=== PATIENT | male | born 1950 | race Caucasian/White ===

== ENCOUNTER → 2016-09-07 | Outpatient (CLI) | payer OTHER ==
[~2016-09-07] VITALS: Ht 186.7 cm; Wt 107.9 kg
[~2016-09-07] MED LIST: ALBU8I INH; ASPI1TAB69 PO; ASPI81TA11 PO; ASPI81TA82 PO; BD P31MI2; CARV3.12 PO; CILO100T PO; DEXTROSE 5% IN WATE 1000ML INJ 1,000 ML IV SCH; FURO20 PO; GLUCOMETER XX; GLUCOMTESTSTRIPS XX; GLUCTAB PO; INSULIN HUMAN REGULAR 1,000 UNITS/10 ML VIAL SQ PRN; LACTATED RINGER'S 1000 ML IV SCH; LANTINJ SQ; LEVA750T PO; LEVEMIR SQ; LISI-515 PO; LISI20 PO; METOPROLOL TARTRATE 25 MG TAB PO PRN; NEXI40CA PO; OMPR20CCR PO; PENT400 PO; PENT400T PO; PENT400T19 PO; PRED10 PO; PRED20 PO; PROPOFOL 200 MG/20 ML AMP IV ONE; SODIUM CHLORID 0.9% 500 ML IV SCH; SYMB160A INH; XANA1TAB2 PO; XANA1TAB6 PO; Z.0.INSULINSYR XX; Z.0.LANCETS XX
[2016-09-07 10:53] VITALS: BP 167/87; PULSE 76; RESP 18; TEMP 97.9; O2SAT 96
--- NOTE | 2016-09-07 11:15 | EKG ---
Date Performed: 09/07/2016 Time Performed: 10:27:17 PTAGE: 66 years EKG: Sinus rhythm NONSPECIFIC ST & T-WAVE ABNORMALITY BORDERLINE ECG PREVIOUS TRACING : 11/15/2015 20.36 DOCTOR: Evan Ruelas Interpretating Date/Time 09/07/2016 11:14:59
[2016-09-07 12:15] VITALS: TEMP 97.6
[2016-09-07 12:40] VITALS: BP 114/68; PULSE 74; RESP 16; O2SAT 98
== END ==
LOC: HEND 09:54
PROVIDERS: ATTEND Internal Medicine Gastroenterology
DX: Z86.010 Personal history of colon polyps (principal); D12.3 Benign neoplasm of transverse colon; K57.30 Diverticulosis of large intestine without perforation or abscess without bleeding; K64.8 Other hemorrhoids; K59.00 Constipation, unspecified; K21.0 Gastro-esophageal reflux disease with esophagitis; K44.9 Diaphragmatic hernia without obstruction or gangrene; K29.50 Unspecified chronic gastritis without bleeding; K31.9 Disease of stomach and duodenum, unspecified; R94.31 Abnormal electrocardiogram [ECG] [EKG]; E11.8 Type 2 diabetes mellitus with unspecified complications; Z79.84 Long term (current) use of oral hypoglycemic drugs
CPT/HCPCS: 82948; 88305; 93005

== ENCOUNTER → 2017-01-24 | Outpatient (CLI) | payer OTHER ==
[~2017-01-24] MED LIST changes: -ALBU8I INH; -ASPI1TAB69 PO; -ASPI81TA82 PO; -CILO100T PO; -DEXTROSE 5% IN WATE 1000ML INJ 1,000 ML IV SCH; -FURO20 PO; -GLUCOMETER XX; -GLUCOMTESTSTRIPS XX; -GLUCTAB PO; -INSULIN HUMAN REGULAR 1,000 UNITS/10 ML VIAL SQ PRN; -LACTATED RINGER'S 1000 ML IV SCH; -LEVA750T PO; -LEVEMIR SQ; -LISI20 PO; -METOPROLOL TARTRATE 25 MG TAB PO PRN; -OMPR20CCR PO; -PENT400 PO; -PENT400T19 PO; -PRED10 PO; -PRED20 PO; -PROPOFOL 200 MG/20 ML AMP IV ONE; -SODIUM CHLORID 0.9% 500 ML IV SCH; -SYMB160A INH; -XANA1TAB6 PO; -Z.0.INSULINSYR XX; -Z.0.LANCETS XX
--- NOTE | 2017-01-24 10:49 | RADRPT ---
EXAM DATE/TIME: 01/24/2017 00:00 [facility] COMPARISON: No previous studies available for comparison. INDICATIONS : Peripheral Artery Disease TECHNIQUE: Five-station segmental examination of the lower extremities was performed. Pulsed-cuff waveform tracings and pressures were recorded. Ankle-brachial indices and toe-brachial indices were calculated. PRESSURES (mmHg): Brachial (arm): Right 154 Left CNO Lower Thigh: Right 77 Left 79 Calf: Right 78 Left 83 Ankle: Right 78 Left 92 Toe: Right 71 Left 56 ANGELLA: Right 0.51 Left 0.60 TBI: Right 0.46 Left 0.36 PULSED CUFF WAVEFORMS: There is blunting of the waveforms at the level of the ankles bilaterally. CONCLUSION: 1. Findings a moderate disease bilaterally with decreased toe brachial indices suggestive of small ve ssel disease. CT angiography of the abdominal aorta and lower extremities is recommended for further evaluation if clinically indicated. Mateo Montelongo MD on January 24, 2017 at 10:46 Board Certified Radiologist. This report was verified electronically.
== END ==
LOC: HCAV 07:36
PROVIDERS: ATTEND Family Medicine
DX: I73.9 Peripheral vascular disease, unspecified (principal)
CPT/HCPCS: 93923

== ENCOUNTER → 2017-02-26 | Outpatient (CLI) | payer OTHER ==
[~2017-02-26] MED LIST changes: +ACCUTES19; +IOHEXOL 350 MG/ML 10 ML VIAL (for RAD DIAG) IV ONE; +METF500T PO; -PENT400T PO
--- NOTE | 2017-02-26 20:07 | RADRPT ---
EXAM DATE/TIME: 02/26/2017 13:46 [facility] COMPARISON: No previous studies available for comparison. INDICATIONS : Bilateral leg have pain while walking. IV CONTRAST: 85 cc Omnipaque 350 (iohexol) IV RADIATION DOSE: 11.29 CTDIvol (mGy) MEDICAL HISTORY : Cardiovascular disease. Chronic obstructive pulmonary disease. Congestive heart failure.Diabetes SURGICAL HISTORY : Appendectomy. ENCOUNTER: Initial ACUITY: 1 day PAIN SCALE: 3/10 LOCATION: [place] TECHNIQUE: Volumetric scanning was performed using a multi-row detector CT scanner. The data was post processed with a variety of visualization algorithms including full volume maximum intensity projection, multi -planar sliding thin slab reformation, curved planar reformation, and surface rendering techniques. Using automated exposure control and adjustment of the mA and/or kV according to patient size, radiat ion dose was kept as low as reasonably achievable to obtain optimal diagnostic quality images. DICO M format image data is available electronically for review and comparison. FINDINGS: The abdominal aorta is notable for moderate atheromatous irregularity and patchy dense intimal calcif ication. No significant aortic stenosis present. No aneurysm. Looking at the aortic visceral vessels, the celiac is satisfactory in appearance. There is high grade eccentric stenosis involving the proxi mal SMA. Single renal arteries are satisfactory in appearance. The CATHIE is stenotic at its origin. In the pelvis, there is high-grade stenosis involving the left iliac system at several sites and mild -moderate multifocal stenosis involving the right iliac system. The hypogastrics are patent. There is moderate posterior soft plaque involving the left common femoral artery. Right common femoral is rel atively more healthy. The profundas are patent bilaterally. There is severe SFA disease bilaterally, more severe and diffuse on the right than the left. The popl iteal arteries are relatively healthy in appearance however small in caliber on both sides. Adequate calf runoff is present with 2 intact vessels present on both sides. The posterior tibial arteries are discontinuous bilaterally. Elsewhere on the exam, note is made of gallstones. Speckled pancreatic calcifications suggest prior b outs of pancreatitis. CONCLUSION: Multifocal bilateral iliac inflow stenoses, left worse than right. Severe diffuse SFA disease bilaterally, right worse than left. Popliteal arteries are small in caliber though focally healthy. Adequate calf runoff Fernando Felix MD on February 26, 2017 at 19:55 Board Certified Radiologist. This report was verified electronically.
== END ==
LOC: HRAD 12:41
PROVIDERS: ATTEND Family Medicine
DX: I73.9 Peripheral vascular disease, unspecified (principal)
CPT/HCPCS: 75635; Q9967

== ENCOUNTER 2017-04-25 06:45 | Day surgery (SDC) | payer OTHER ==
[~2017-04-25] VITALS: Ht 186.7 cm; Wt 115.4 kg
[~2017-04-25 06:45] MED LIST changes: -IOHEXOL 350 MG/ML 10 ML VIAL (for RAD DIAG) IV ONE
[2017-04-25] MEDS ORDERED: IOHEXOL 350 MG/ML 100 ML BTL (for Cath Lab) OTHER ONE (06:46)
[2017-04-25 07:32] VITALS: BP 142/83; PULSE 83; RESP 16; TEMP 97.9; O2SAT 97
[2017-04-25] MEDS ORDERED: LANTINJ SQ (07:40)
[2017-04-25 08:10] LABS: AUTOMATED NEUTROPHIL # 4.3 TH/MM3 (1.8-7.7); BASOPHIL % 0.6 % (0.0-2.0); EOSINOPHIL # 0.3 TH/MM3 (0-0.4); EOSINOPHIL % 3.6 % (0.0-4.0); HEMATOCRIT 45.6 % (39.0-51.0); HEMO FLAGS DIFF FINAL; LYMPH % 37.1 % (9.0-44.0); LYMPHOCYTE # 3.2 TH/MM3 (1.0-4.8); MEAN CORPUSCULAR HEMOGLOBIN 30.1 PG (27.0-34.0); MEAN CORPUSCULAR HGB CONC 33.1 % (32.0-36.0); MONO % 7.9 % (0.0-8.0); NEUT % 50.8 % (16.0-70.0); PLATELET COUNT 209 TH/MM3 (150-450); RED BLOOD COUNT 5.02 MIL/MM3 (4.50-5.90); RED CELL DISTRIBUTION WIDTH 14.2 % (11.6-17.2); WHITE BLOOD COUNT 8.5 TH/MM3 (4.0-11.0)
[2017-04-25 08:15] LABS: APTT (PATIENT) 25.9 SEC (24.3-30.1); PROTHROMBIN TIME - PATIENT 10.5 SEC (9.8-11.6)
[2017-04-25] MEDS ORDERED: NS 1000P @30 MLS/HR (KVO) IV SCH (08:15)
[2017-04-25 08:33] LABS: BICARBONATE 23.3 MEQ/L (21.0-32.0)
[2017-04-25 08:34] LABS: POTASSIUM 4.3 MEQ/L (3.5-5.1)
[2017-04-25] MEDS ORDERED: NITROGLYCERIN INJ 5 ML ONE (08:38)
[2017-04-25] MEDS ORDERED: VERAPAMIL HCL 5 MG/2 ML VIAL ONE (08:38)
[2017-04-25] MEDS ORDERED: MIDAZOLAM HCL 5 MG/5 ML VIAL ONE (08:38)
[2017-04-25] MEDS ORDERED: HEPARIN SODIUM - IV 10,000 UNITS/10 ML VIAL ONE (08:38)
[2017-04-25] MEDS ORDERED: HEPARIN-NS/PF INJ 500 ML ONE (09:17)
[2017-04-25] MEDS ORDERED: CLOPIDOGREL 300 MG TAB ONE (09:35)
[2017-04-25] MEDS ORDERED: SODIUM CHLOR 0.9% 1000 ML INJ 1,000 ML IV SCH (09:43)
[2017-04-25] MEDS ORDERED: MORPHINE SULFATE 4 MG/ML INJ IV PUSH PRN (09:45)
[2017-04-25] MEDS ORDERED: MISC INFORMATION XX ONE (09:45)
[2017-04-25] MEDS ORDERED: SODIUM CHLORIDE 0.9% FLUSH 10 ML FLUSH IV FLUSH PRN (09:45)
--- NOTE | 2017-04-25 11:12 | MA ---
cc: MELITA GENAO M.D. DATE: 04/25/2017 INDICATION Unstable angina and significant positive stress test for ischemia. PROCEDURE Left heart catheterization, angiogram, left ventriculogram, angioplasty and stent placement of the LAD, angioplasty and stent placement of the right coronary artery. PROCEDURE NOTE After obtaining informed consent the patient in a fasting state was brought to the label sewer. The right radial area was sterilized and draped with sterile drapes. 1% Xylocaine was used to locally anesthetize the area. A 6 Swedish sheath was used to access the right radial artery. A [place] catheter was used to intubate the left main, JR4 to intubate the right coronary artery and perform left ventriculogram and the pressure measurements. CORONARY ANGIOGRAM The left main coronary artery is a medium size vessel which bifurcates into the LAD and left circumflex artery. The left main has no significant disease. The left anterior descending coronary artery has about 85% stenosis proximally and mild diffuse disease distally. The left circumflex coronary artery gives rise to an obtuse marginal artery with mild diffuse disease. A second obtuse marginal artery is very small and has severe diffuse disease. The right coronary artery is a medium size vessel which is dominant. The midsegment has two different lesions. The first one is about 75%. The distal one is about 90%. Very distally the posterior descending coronary artery has diffuse disease. LEFT VENTRICULOGRAM The ejection fraction is estimated to be 55%. There is no pressure gradient across the aortic valve. The left ventricular end-diastolic pressure is 14. The aortic pressure is 140/70. ANGIOPLASTY AND STENT PLACEMENT OF THE LAD Heparin was given. The left main was successfully intubated using a [place] catheter and a 6 Swedish guide used to cross the lesion and positioned distally. Balloon angioplasty followed by a 3.0 x 18 [place] stent up to 12 atmospheres. Angiographic evaluation showed excellent deployment of the stent, excellent flow distally. ANGIOPLASTY AND STENT PLACEMENT OF THE RIGHT CORONARY ARTERY The right coronary artery was successfully intubated using a JR4 6 Swedish guide catheter, was used to cross the lesion and positioned distally. A stent which was an [place] 2.5 x 26, inflated up to 12 atmospheres. Angiographic evaluation showed excellent deployment of the stent, excellent flow distally. The wires, balloons and catheters were taken out. The sheath was taken out. A TR band was applied. Plavix 600 mg was given in the label sewer. The patient was sent back to his room in stable condition. POSTOPERATIVE DIAGNOSIS 1. Successful angioplasty and stent placement of the LAD. 2. Successful angioplasty and sent placement of the right coronary artery. 3. Preserved systolic performance of the left ventricle. MD ESHA Taylor/WILLIAMS /9:39 AM /10:41 AM
--- NOTE | 2017-04-25 14:44 | CATHPROC ---
[employer] HIS Report Study Information Study Number Admission Scheduled Start Study Start [id number] Apr 25 2017 6:45AM 04/25/2017 Apr 25 2017 8:18AM [place] [facility] Cardiac Catheterization Admit Source Facility Department Other [facility] - Infrastructure Manager Physician and Clinical Staff Initial Cesia Mauricio Payroll Supervisor Rebecca Boyer,LIGIA Recorder Iram Sosa,RT(R) Scrub Sameer Munguia RCIS(BS) Procedures Performed Procedure Location (Site) Vessel Name Coronary Angiograms LCA Left Coronary Coronary Angiograms RCA Right Coronary Drug Eluting Inflatio LAD Prox Left Coronary Drug Eluting Inflatio RCA Mid Right Coronary L Heart Cath LV Gram-hand inj. LV LV Ventricle PTCA LAD Prox Left Coronary Wire insertion Radial (right) Radial Art. Equipment Time Stonemason Supervisor Description Size Mfg Part Number Used/Scraped WIRE, WHISPER W/HYDROCOAT [id number] 09:15 [employer] 190CM Used 190CM *[id number] TRANSDUCER, TRUWAVE [id number] 08:48 ODONNELL NORMAN * Used W/FELIBERTOCOCK *[id number] TIG 4.0 GUIDE CATHETER [id number] 09:16 [employer] FR 6 Used CONVEY *[id number] *[id number] *[id number] 08:48 [employer] PACK, CCL CUSTOM * Used *[id number] 08:48 [employer] SUPPORT, ARTERIAL ADULT [id number] *[id number] Used [id number] 08:48 [employer] PACER PEN, SKIN DUAL W/ RULER * Used *[id number] 09:20 [employer] BALLOON, 2.5 X 15MM EUPHORA 15MM Used *[id number] STENT, 3.0 18 RESOLUTE [id number] 09:24 [employer] 3.0 18 Used INTEGRITY RX *[id number] 09:33 [employer] STENT, 2.5 26MM ASTRID 2.5 26MM Used *[id number] 09:23 [employer] 30 ROBBIE INDEFLATOR Used *[id number] BAND, RADIAL COMPRESSION TR [id number] 09:42 [employer] MEDICAL 29CM Used LARGE 29 *[id number] 09:17 [employer] PACK, ANGIOPLASTY * [id number] Used [id number] 08:48 [employer] WIRE, EXCHANGE 260CM 3MMJ 260CM Used *[id number] 08:48 NAMIC MANIFOLD, 4 PORT * Used *[id number] 08:48 [employer] TUBING, HIGH PRESSURE 20" 20" Used *[id number] 08:48 [employer] OMNIPAQUE, 350 MG, 150ML 150ML [id number] Used [id number] 08:48 [facility] BLANKET,WARM AIR CCL * Used *[id number] CATHETER, FR5 OPTITORQUE [id number] 08:48 [employer] FR 5 Used RADIAL TIG 4.0 *[id number] SHEATH, FR6 TRANSRADIAL [id number] 08:48 [employer] FR 6 Used SLENDER 10CM *[id number] Equipment Model, Serial, Lot Number and Expiration Data Description Model Number Serial Number Lot Number Expiration Date STENT, 3.0 18 RESOLUTE [id number] 10-25-2018 INTEGRITY RX STENT, 2.5 26MM ASTRID [id number] 01-24-2019 History: Current Medications Medication Dosage/Unit Route Frequency Last Date/Time Taken Glucophage Insulin LISINOPRIL CARVEDILOL ASA History: Allergies Allergy Reaction No Known Allergies History: Risk Factors Family History of Hypertension Dyslipidemia Previous MO Previous Heart Failure Premature CAD Yes No No No Yes Prior Valve Prior PCI Prior CABG Surgery No No No Cerebrovascular Peripheral Artery Chronic Lung On Dialysis Diabetes Diabetes Therapy Disease Disease Disease No No Yes Yes Yes Insulin History: Symptoms/Diagnosis Selection Items Chest pain SOB History: Stress Tests Stress or Imaging Studies Performed Yes Standard Exercise Stress Test No Stress Echo No Stress Test SPECT Stress Test SPECT Result Stress Test SPECT Ischemia Risk/Extent Yes Positive Intermediate Stress Test CMR No Cardiac CTA Coronary Calcium Score No No History: Other Disease Selection Items COPD HIV History: Other Current Smoker Method Quit Packs a Day Years Used Pack Years No Cigarettes 15 Years Ago 2 26 52 Labs Hgb (g/dl) Hct (%) WBC (l/cumm) Platelets (thousands) 11.60-17.00 35.00-51.00 4.00-11.00 150.00-450.00 15.1 45.6 8.5 209 Glucose (mg/dl) BUN (mg/dl) Creatinine (mg/dl) BUN:Creatinine (1:x) 74.00-106.00 7.00-18.00 0.50-1.30 10.00-20.00 177 22 0.9 24.4 Na (meq/l) K (meq/l) Cl (meq/l) 136.00-145.00 3.50-5.10 98.00-107.00 138 4.3 106 INR (PTT:PT) 0.90-1.10 1 CPK-MB (ng/ML) 0.50-3.60 Not Drawn Medication Medication Total Dose (Bolus/Oral) Medication Total Dosage/Unit 1% XYLOCAINE 20 mL HEPARIN 5500 units PLAVIX 600 mg RADIAL COCKTAIL 5 mL (Bolus) VERSED 2 mg Medications (Bolus/Oral) Medication Time Given Dosage/Unit Administered By Reason VERSED 04/25/2017 8:59:00 AM 2 mg Rebecca Boyer 2 mg VERSED given in lab by Rebecca Boyer RN in Left Antecubital via Peripheral IV. Ordered by Cesia Villatoro. 1% XYLOCAINE 04/25/2017 9:00:18 AM 20 mL Cesia Copeland 20 mL 1% XYLOCAINE given in lab by Cesia Copeland in Right Radial via Subcutaneous. Ordered by Cesia Copeland. RADIAL COCKTAIL 04/25/2017 9:02:28 AM 5 mL (Bolus) Cesia Copeland 5 mL (Bolus) RADIAL COCKTAIL given in lab by Cesia Copeland in Right Radial via Radial. Using [Solutio n Name]. Ordered by Cesia Copeland. Reason: Ntg 200mcg Verapamil 2.5mg Heparin 1000U. HEPARIN 04/25/2017 9:15:00 AM 5000 units Rebecca Boyer 5000 units HEPARIN given in lab by Rebecca Boyer RN in Left Antecubital via Peripheral IV. Ordered by Cesia Copeland. HEPARIN 04/25/2017 9:34:00 AM 500 units Rebecca Boyer 500 units HEPARIN given in lab by Rebecca Boyer RN in Left Antecubital via Peripheral IV. Ordered by Cesia Copeland. PLAVIX 04/25/2017 9:40:00 AM 600 mg Rebecca Boyer 600 mg PLAVIX given in lab by Rebecca Boyer RN via Oral. Ordered by Cesia Copeland. Medication (Drip) Medication Time Given Dosage/Unit Concentration/Unit Diluent (ml) Solution IV Solutions 04/25/2017 8:27:46 AM 50 mL (IV) NaCl .9 IV Solutions given in lab by Rebecca Boyer, RN in Right Antecubital via Peripheral IV. Pump/Drip Fl ow using NaCl .9. Ordered by Cesia Copeland. Initial Case Assessment Cardiovascular HR Rhythm NIBP Chest Pain 83 sr 172/82 0 Skin color Skin Normal Warm Dry Neurological State Oriented to time-place- Alert Moves all extremities person Respiration - General Respiration Rate SpO2 (%) (B/min) 17 98 Chronological Log Time Study Chronological Log 8:27:27 Patient arrived via Bed. 8:27:28 Patient Name, D.O.B, / Armband Verified By R.N. 8:27:28 Consent signed by the physician and the patient and verified by the Infrastructure Manager staff. 8:27:30 Pre-op and post- op instructions given; patient acknowledges understanding of instructions . 8:27:31 Verbal Stimulation=2 Physical Stimulation=2 Airway=2 Respiration=2 TOTAL=8. (0=absent, 1=l imited, 2=present) 8:27:32 Allens test performed on the right radial and ulnar artery. 8:27:34 Patient has been NPO for More than 6Hrs. 8:27:35 Skin Breakdown- none per pt 8:27:36 Patient Warmer Placed on the Table. 8:27:45 A # 20 IV was noted in the Antecubital (left). Grade = 0 IV Solutions given in lab by Rebecca Boyer, RN in Right Antecubital via Peripheral IV. Pump/Dr ip Flow using NaCl .9. 8:27:46 Ordered by Cesia Copeland. 8:27:46 History and physical on the chart or being dictated. Assessment: Initial Case, HR=83 BPM, Rhythm=sr, UXFA=754/82 mmhg, Chest Pain=0, Color=Normal, Sk in = Warm, Dry 8:27:47 Neurological: State=Alert, Ox3, IVAN Respiration: Resp=17 B/min, SpO2=98 % Vitals capture started with the following parameters, Patient=Adult, Interval=5 min, Initial Pre smqoz=507 mmHg, 8:34:55 Deflation Rate=5 mmHg, Cuff placed on Right Arm 8:36:01 HR=81 bpm, TGGQ=136/82 mmhg, SpO2=96.0 %, Resp=21 B/min, Garcia=2 8:38:34 Reference ECG taken 8:40:38 HR=80 bpm, ORFH=268/87 mmhg, SpO2=96.0 %, Resp=18 B/min 8:45:35 HR=80 bpm, OFBZ=351/86 mmhg, SpO2=96.0 %, Resp=18 B/min 8:47:25 MD paged 8:50:32 MD responded 8:50:36 HR=76 bpm, BMEM=323/82 mmhg, SpO2=95.0 %, Resp=16 B/min 8:55:16 Pressure channel 2 zeroed. 8:55:33 HR=82 bpm, IJPC=182/85 mmhg, SpO2=95.0 %, Resp=19 B/min 8:57:14 MD arrived. 8:59:00 2 mg VERSED given in lab by Rebecca Boyer, LIGIA in Left Antecubital via Peripheral IV. Order ed by Cesia Copeland. Time Out. Correct patient, correct procedure, correct physician, power injector loaded, or not l oaded with contrast with 8:59:46 surgical team present. Time Out Concurred by MD and individual staff in procedure. 9:00:02 Case Start 9:00:18 20 mL 1% XYLOCAINE given in lab by Cesia Copeland in Right Radial via Subcutaneous. Ordered b y Cesia Copeland. 9:01:15 HR=82 bpm, YXQW=713/92 mmhg, SpO2=98.0 %, Resp=14 B/min 9:01:58 Access site was Right Radial Artery. A SHEATH, FR6 TRANSRADIAL SLENDER 10CM FR 6 was advanced into the Radial (right) using the Percu tanesanty 9:02:13 technique. 5 mL (Bolus) RADIAL COCKTAIL given in lab by Cesia Copeland in Right Radial via Radial. Using [So lution Name]. Ordered 9:02:28 by Cesia Copeland. Reason: Ntg 200mcg Verapamil 2.5mg Heparin 1000U. A CATHETER, FR5 OPTITORQUE RADIAL TIG 4.0 FR 5 was advanced over a wire. OMNIPAQUE, 350 MG, 150M L 150ML 9:03:11 was used for injections. 9:04:48 The LCA was injected and visualized at various angles. OMNIPAQUE, 350 MG, 150ML 150ML used. Recorded Pressure: Ao, HR=82, Condition=Condition 1 9:05:02 (Aorta) Ao 122/58/81 9:05:39 HR=80 bpm, XIGD=478/60 mmhg, SpO2=96.0 %, Resp=19 B/min 9:06:00 The RCA was injected and visualized at various angles. OMNIPAQUE, 350 MG, 150ML 150ML used. Recorded Pressure: LV, HR=83, Condition=Condition 1 9:08:11 (Left Ventricle) LV 118/8/10 Recorded Pressure: LV, Ao, HR=82, Condition=Condition 1 9:08:25 (Left Ventricle) LV 120/9/15, (Aorta) Ao 123/58/87 After removing the current catheter a JR 4.0 INFINITI CATHETER FR 6 was advanced over a WIRE, EX CHANGE 260CM 9:09:38 3MMJ 260CM. 9:10:32 HR=80 bpm, XEMS=683/65 mmhg, SpO2=96.0 %, Resp=17 B/min 9:11:30 The LV was manually injected with 10 cc's and visualized. OMNIPAQUE, 350 MG, 150ML 150ML use d. Recorded Pressure: LV, HR=79, Condition=Condition 1 9:11:59 (Left Ventricle) LV 137/6/12 Recorded Pressure: LV, Ao, HR=79, Condition=Condition 1 9:12:20 (Left Ventricle) LV 144/4/12, (Aorta) Ao 132/59/86 After removing the current catheter a TIG 4.0 GUIDE CATHETER CONVEY FR 6 was advanced over a WIR E, EXCHANGE 9:14:16 260CM 3MMJ 260CM. 9:15:00 5000 units HEPARIN given in lab by Rebecca Boyer, RN in Left Antecubital via Peripheral IV . Ordered by Cesia Copeland. 9:15:33 HR=78 bpm, AGOK=255/70 mmhg, SpO2=95.0 %, Resp=18 B/min 9:17:41 A WIRE, WHISPER W/HYDROCOAT 190CM 190CM was inserted via Radial (right). 9:19:00 Interventional wire has crossed the lesion 9:20:36 HR=79 bpm, GEDF=013/67 mmhg, SpO2=96.0 %, Resp=20 B/min A BALLOON, 2.5 X 15MM EUPHORA 15MM was inserted over WIRE, WHISPER W/HYDROCOAT 190CM 190CM via t he 9:21:16 Radial (right). A BALLOON, 2.5 X 15MM EUPHORA 15MM over a WIRE, WHISPER W/HYDROCOAT 190CM 190CM in the LAD Prox was 9:21:39 inflated using a 30 ROBBIE INDEFLATOR at 8 robbie for 15 sec. 9:22:00 Balloon Removed. A STENT, 3.0 18 RESOLUTE INTEGRITY RX 3.0 18 was advanced through a TIG 4.0 GUIDE CATHETER CONVE Y FR 6 9:24:15 over a WIRE, WHISPER W/HYDROCOAT 190CM 190CM. A STENT, 3.0 18 RESOLUTE INTEGRITY RX 3.0 18 was deployed using a 30 ROBBIE INDEFLATOR at 12 atmosp heres for 9:24:31 13 seconds in the LAD Prox. 9:25:18 Stent deployed. Delivery device removed 9:25:35 HR=78 bpm, VIUK=718/77 mmhg, SpO2=97.0 %, Resp=20 B/min 9:25:45 Wire removed After removing the current catheter a JR 4.0 GUIDE CATHETER FR 6 was advanced over a WIRE, EXCHA NGE 260CM 9:26:40 3MMJ 260CM. 9:27:52 Activated Clotting Time Drawn 9:30:12 A WIRE, WHISPER W/HYDROCOAT 190CM 190CM was inserted via Radial (right). 9:30:36 HR=78 bpm, DGLJ=571/79 mmhg, SpO2=97.0 %, Resp=18 B/min 9:31:41 Interventional wire has crossed the lesion 9:33:01 ACT (Normal Range 90-180) = 228 A STENT, 2.5 26MM ASTRID 2.5 26MM was advanced through a JR 4.0 GUIDE CATHETER FR 6 over a WIRE, W HISPER 9:33:46 W/HYDROCOAT 190CM 190CM. 9:34:00 500 units HEPARIN given in lab by Rebecca Boyer, RN in Left Antecubital via Peripheral IV. Ordered by Cesia Copeland. A STENT, 2.5 26MM ASTRID 2.5 26MM was deployed using a 30 ROBBIE INDEFLATOR at 12 atmospheres for 10 seconds in 9:34:02 the RCA Mid. 9:34:55 Stent deployed. Delivery device removed 9:35:14 Wire removed 9:35:22 Catheter was removed 9:35:37 HR=81 bpm, LIMH=901/77 mmhg, SpO2=97.0 %, Resp=15 B/min 9:35:48 Case End 9:40:00 600 mg PLAVIX given in lab by Rebecca Boyer RN via Oral. Ordered by Cesia Copeland. Radial Compression Device Used. 12 mLs of air placed in BAND, RADIAL COMPRESSION TR LARGE 29 29C M. Affected 9:41:22 hand ~O2 SATURATION~ % O2 saturation. 9:41:25 HR=80 bpm, KQOQ=423/87 mmhg, SpO2=98.0 %, Resp=8 B/min 9:41:51 No case complications noted. 9:42:23 Cine recording checked. 9:42:26 Holding Area notified of successful intervention. 9:42:36 Bedside Report will be given. 9:42:39 Implantable Device card placed in patient's chart. 9:42:46 Contrast Scanned 9:42:50 A Left Heart Cath was performed. 9:50:00 Patient moved to bed. End Study - Contrast Media Used In Study Contrast Total Opened (mL) Total Used (mL) Total Wasted (mL) Omnipaque 190 190 0 End Study - Maximum Contrast Load Max Contrast Load (mL) 641.4 End Study - Radiation Exposure Fluoro Time (minutes) 9.0 End Study - Patient Disposition Complications Transferred To No Telemetry Bed
[2017-04-25] MEDS ORDERED: SODIUM CHLORIDE 0.9% FLUSH 10 ML FLUSH IV FLUSH SCH (21:00)
[2017-04-25] MEDS ORDERED: ATORVASTATIN 10 MG TAB PO SCH (21:00)
[2017-04-26] MEDS ORDERED: CLOPIDOGREL 75 MG TAB PO SCH (09:00)
[2017-04-26] MEDS ORDERED: ASPIRIN 81 MG CHEW TAB PO SCH (09:00)
--- NOTE | 2017-04-26 14:49 | EKG ---
Date Performed: 04/25/2017 Time Performed: 07:37:56 PTAGE: 66 years EKG: Sinus rhythm . Extensive ST-T changes are nonspecific Borderline ECG PREVIOUS TRACING : 09/07/2016 10.27 Compared to prior tracing no significant change DOCTOR: Julio Arevalo Interpretating Date/Time 04/26/2017 14:48:04
== END 2017-04-25 18:30 | disposition home or self-care (01) ==
LOC: HCAT 06:45 → HDIC 06:46 → HCAT 18:30
PROVIDERS: ATTEND Internal Medicine Cardiovascular Disease
DX: I20.0 Unstable angina (principal); I25.9 Chronic ischemic heart disease, unspecified; E11.9 Type 2 diabetes mellitus without complications; Z79.4 Long term (current) use of insulin
CPT/HCPCS: 80048; 85002; 85025; 85610; 85730; 92928; 92929; 93005; 93458; C1725; C1769; C1874; C1887; C1893; J1644; J2250; Q9967

== ENCOUNTER 2017-05-08 05:52 | Day surgery (SDC) | payer OTHER ==
[~2017-05-08] VITALS: Ht 185.4 cm; Wt 113.7 kg
[~2017-05-08 05:52] MED LIST changes: -ACCUTES19; -BD P31MI2; -NEXI40CA PO; -XANA1TAB2 PO
[2017-05-08] MEDS ORDERED: IOHEXOL 350 MG/ML 50 ML BTL (for Cath Lab) OTHER ONE (05:53)
[2017-05-08] MEDS ORDERED: IOHEXOL 350 MG/ML 100 ML BTL (for Cath Lab) OTHER ONE (05:53)
[2017-05-08] MEDS ORDERED: SODIUM CHLOR 0.9% 1000 ML INJ 1,000 ML IV SCH (06:15)
[2017-05-08] MEDS ORDERED: NEXI20CA PO (06:42)
[2017-05-08] MEDS ORDERED: PLAV75TA29 PO (06:42)
[2017-05-08] MEDS ORDERED: LIPI10TA PO (06:42)
[2017-05-08] MEDS ORDERED: OMEGCAP PO (06:42)
[2017-05-08 06:43] VITALS: BP 118/71; PULSE 77; RESP 17; TEMP 98.4; O2SAT 96
[2017-05-08 06:52] LABS: AUTOMATED NEUTROPHIL # 3.7 TH/MM3 (1.8-7.7); BASOPHIL % 0.5 % (0.0-2.0); EOSINOPHIL # 0.3 TH/MM3 (0-0.4); EOSINOPHIL % 3.8 % (0.0-4.0); HEMATOCRIT 44.5 % (39.0-51.0); HEMO FLAGS DIFF FINAL; LYMPH % 38.1 % (9.0-44.0); LYMPHOCYTE # 2.9 TH/MM3 (1.0-4.8); MEAN CELL VOLUME 90.2 FL (80.0-100.0); MEAN CORPUSCULAR HGB CONC 33.3 % (32.0-36.0); NEUT % 48.6 % (16.0-70.0); PLATELET COUNT 207 TH/MM3 (150-450); RED BLOOD COUNT 4.94 MIL/MM3 (4.50-5.90); WHITE BLOOD COUNT 7.5 TH/MM3 (4.0-11.0)
[2017-05-08 06:56] LABS: INTERNATIONAL NORMALIZED RATIO 0.9 RATIO; PROTHROMBIN TIME - PATIENT 10.4 SEC (9.8-11.6)
[2017-05-08 07:14] LABS: BICARBONATE 26.4 MEQ/L (21.0-32.0); POTASSIUM 4.6 MEQ/L (3.5-5.1)
[2017-05-08] MEDS ORDERED: HEPARIN-NS/PF INJ 1,000 ML ONE (08:05)
[2017-05-08] MEDS ORDERED: MIDAZOLAM HCL 2 MG/2 ML VIAL ONE (08:05)
[2017-05-08] MEDS ORDERED: HEPARIN SODIUM - IV 10,000 UNITS/10 ML VIAL ONE (08:28)
[2017-05-08] MEDS ORDERED: NITROGLYCERIN INJ 0 ML ONE (08:28)
--- NOTE | 2017-05-08 08:56 | CATHPROC ---
[facility] HIS Report Study Information Study Number Admission Scheduled Start Study Start [id number] May 08 2017 5:52AM 05/08/2017 May 08 2017 7:38AM [place] Service Cath Endovascular Study Admit Source Facility Department Other [facility] - Planogrammer Physician and Clinical Staff Initial Cesia Mauricio Clinical Team Leadrosemary Ash RN, Lidia Patten,LIGIA Recorder Florentino Jj,RT(R) Scrub Lane ReinosoRT(R) Procedures Performed Procedure Location (Site) Vessel Name Abdominal Angiogram Abd Aorta (A3) Aorta Angiogram (manual) SFA (right) Femoral Art Angiogram (manual) Tib, Ant. (right) Popliteal Equipment Time Computer Science Professor Description Size Mfg Part Number Used/Scraped [id number] 08:44 CARDIVA MEDICAL VASCADE, FR5 CLOSURE SYSTEM FR 5 Used *[id number] *[id number] *[id number] 07:38 [employer] INDUSTRIES PACK, CCL CUSTOM * Used *[id number] 07:39 [employer] MEDICAL WIRE, EXCHANGE 260CM 3MMJ 260CM Used *[id number] 08:02 NAMIC TUBING, HIGH PRESSURE 48" 48" Used *[id number] 07:38 NAMIC TUBING, HIGH PRESSURE 48" 48" Used *[id number] 07:38 NYCOMED OMNIPAQUE, 300 MG, 150ML 150ML [id number] Used 07:38 NYCOMED OMNIPAQUE, 300 MG, 50ML 50ML [id number] Used [id number] 07:38 BUSTOS MEDICAL BLANKET,WARM AIR CCL * Used *[id number] 07:38 TERUMO MEDICAL SHEATH, FR5 TERUMO (10CM) FR 5 Used *[id number] WIRE, ANGLE GLIDE STIFF .035 [id number] 07:39 TERUMO MEDICAL/NOLAN 260CM Used 260CM *[id number] WIRE, ANGLED GLIDE .035 [id number] 08:35 TERUMO MEDICAL/NOLAN 260CM Used 260CM *[id number] Equipment Model, Serial, Lot Number and Expiration Data Description Model Number Serial Number Lot Number Expiration Date WIRE, EXCHANGE 260CM 3MMJ [id number] 01-20-2020 History: Current Medications Medication Dosage/Unit Route Frequency Last Date/Time Taken Glucophage Insulin LISINOPRIL CARVEDILOL ASA PLAVIX Beta Srinivasa Statins (any) History: Allergies Allergy Reaction No Known Allergies History: Risk Factors Family History of Hypertension Dyslipidemia Previous [place] Previous Heart Failure Premature CAD Yes Yes Yes No No Prior Valve Prior PCI Prior PCIDate Prior CABG Surgery No Yes 04/25/2017 No Cerebrovascular Peripheral Artery Chronic Lung On Dialysis Diabetes Diabetes Therapy Disease Disease Disease No No Yes Yes Yes Insulin History: Stress Tests Stress or Imaging Studies Performed No History: Other Disease Selection Items COPD HTN History: Other Current Smoker Method Quit Packs a Day Years Used Pack Years No Cigarettes 25 Years Ago 1 22 Labs Hgb (g/dl) Hct (%) WBC (l/cumm) Platelets (thousands) 11.60-17.00 35.00-51.00 4.00-11.00 150.00-450.00 14.8 44.5 7.5 207 Glucose (mg/dl) BUN (mg/dl) Creatinine (mg/dl) BUN:Creatinine (1:x) 74.00-106.00 7.00-18.00 0.50-1.30 10.00-20.00 161 29 1.0 29 Na (meq/l) K (meq/l) 136.00-145.00 3.50-5.10 140 4.6 INR (PTT:PT) 0.90-1.10 0.9 CPK-MB (ng/ML) 0.50-3.60 Not Drawn Medication Medication Total Dose (Bolus/Oral) Medication Total Dosage/Unit 1% XYLOCAINE 20 mL VERSED 2 mg Medications (Bolus/Oral) Medication Time Given Dosage/Unit Administered By Reason VERSED 05/08/2017 8:13:04 AM 2 mg Onofre Ash RN 2 mg VERSED given in lab by Onofre Ash RN in Left Antecubital via Peripheral IV. 1% XYLOCAINE 05/08/2017 8:16:53 AM 20 mL Cesia Copeland 20 mL 1% XYLOCAINE given in lab by Cesia Copeland in Right Groin via Subcutaneous. Medication (Drip) Medication Time Given Dosage/Unit Concentration/Unit Diluent (ml) Solutio n IV Solutions 05/08/2017 7:59:20 AM 50 mL (IV) NaCl .9 IV Solutions given in lab by Onofre Ash RN in Left Antecubital via Peripheral IV. Pump/Drip Flow us ing NaCl .9. Initial Case Assessment Cardiovascular HR Rhythm NIBP Chest Pain 75 SR 167/83 0 Edema Present Skin color Skin None Normal Warm Dry Circulatory - Right Pulses Dorsalis Pedis Posterior Tibial Femoral d d 1 Scale (0,1,2,3,4,d) Circulatory - Left Pulses Dorsalis Pedis Posterior Tibial Femoral d d 1 Scale (0,1,2,3,4,d) Neurological State Oriented to time-place- Alert Moves all extremities person Respiration - General Respiration Rate SpO2 (%) (B/min) 12 98 Final Case Assessment Cardiovascular HR Rhythm NIBP Chest Pain 76 Sinus 143/73 0 Edema Present Skin color Skin None Normal Warm Dry Circulatory - Right Pulses Dorsalis Pedis Posterior Tibial Femoral d d 1 Scale (0,1,2,3,4,d) Circulatory - Left Pulses Dorsalis Pedis Posterior Tibial Femoral d d 1 Scale (0,1,2,3,4,d) Neurological State Oriented to time-place- Alert Moves all extremities person Respiration - General Respiration Rate SpO2 (%) O2 (lpm) (B/min) 17 97 0 Chronological Log Time Study Chronological Log 7:49:36 Patient arrived via Bed. 7:49:37 Patient Name, D.O.B, / Armband Verified By R.N. 7:49:39 Consent signed by the physician and the patient and verified by the Planogrammer staff. 7:49:41 Pre-op and post- op instructions given; patient acknowledges understanding of instructions. 7:50:08 Verbal Stimulation=2 Physical Stimulation=2 Airway=2 Respiration=2 TOTAL=8. (0=absent, 1=li mited, 2=present) 7:50:18 Presedation assessment performed by Planogrammer RN. Vitals capture started with the following parameters, Patient=Adult, Interval=5 min, Initial Pr xoymfi=783 mmHg, 7:57:14 Deflation Rate=5 mmHg 7:58:17 Reference ECG taken 7:58:34 HR=80 bpm, WHVE=137/83 mmhg, SpO2=98.0 %, Resp=14 B/min, Pain=0, Mina=10, Garcia=2 7:58:54 Patient has been NPO for More than 6Hrs. 7:58:55 Skin Breakdown- none per pt 7:59:06 Patient Warmer Placed on the Table. 7:59:10 Janett Prominences Protected 7:59:11 A # 20 IV was noted in the Antecubital (left). Grade = 0 7:59:20 IV Solutions given in lab by Onofre Ash RN in Left Antecubital via Peripheral IV. Pump/Dr ip Flow using NaCl .9. 8:00:29 History and physical on the chart or being dictated. Assessment: Initial Case, HR=75 BPM, Rhythm=SR, KNXB=225/83 mmhg, Chest Pain=0, Edema=None, [place] r=Normal, Skin = Warm, Dry Right Pulses: Jose Ped=d, Post Tib=d, Femoral=1 8:00:29 Left Pulses: Jose Ped=d, Post Tib=d, Femoral=1 Neurological: State=Alert, Ox3, IVAN Respiration: Resp=12 B/min, SpO2=98 % 8:02:58 HR=75 bpm, HXOE=246/79 mmhg, SpO2=96.0 %, Resp=19 B/min, Pain=0, Mina=10, Garcia=2 8:06:40 Bilateral groins prepped with 2% chlorhexidine, and draped after a 3 minute waiting time. 8:07:55 HR=76 bpm, YJLL=213/80 mmhg, SpO2=96.0 %, Resp=15 B/min, Pain=0, Mina=10, Garcia=2 8:11:06 Pressure channel 1 zeroed. 8:11:35 MD arrived. 8:12:58 HR=82 bpm, QYNJ=712/87 mmhg, SpO2=97.0 %, Resp=17 B/min, Pain=0, Mina=10, Garcia=2 8:13:04 2 mg VERSED given in lab by Onofre Ash RN in Left Antecubital via Peripheral IV. Time Out. Correct patient, correct procedure, correct physician, power injector loaded, or not l oaded with contrast with 8:14:42 surgical team present. Time Out Concurred by MD and individual staff in procedure. 8:15:12 Case Start 8:16:53 20 mL 1% XYLOCAINE given in lab by Cesia Copeland in Right Groin via Subcutaneous. 8:17:01 Access site was Right Femoral Artery. 8:17:09 A SHEATH, FR5 TERUMO (10CM) FR 5 was advanced into the Fem Art (right) using the Percutaneou s technique. 8:17:51 HR=83 bpm, ESNC=275/78 mmhg, SpO2=98.0 %, Resp=12 B/min, Pain=0, Mina=10, Garcia=2 A PIGTAIL ANG. INFINITI CATHETER FR 5 was advanced over a wire. OMNIPAQUE, 300 MG, 150ML 150ML w as used 8:18:10 for injections. 8:20:48 Through a PIGTAIL ANG. INFINITI CATHETER FR 5, The Abdominal Aorta was injected with 15 cc's of contrast. 8:22:56 HR=78 bpm, SBON=477/68 mmhg, SpO2=95.0 %, Resp=18 B/min, Pain=0, Mina=10, Garcia=2 8:26:48 Through a catheter, The Femoral Run-off was injected with ~CC/SEC~ cc's per second. 8:27:55 HR=83 bpm, ICHW=221/73 mmhg, SpO2=98.0 %, Resp=18 B/min, Pain=0, Mina=10, Garcia=2 8:31:44 SFA (right) angiogram, manually injected. 8:32:03 Tib, Ant. (right) angiogram, manually injected. 8:32:33 Tib, Ant. (right) angiogram, manually injected. 8:32:56 HR=80 bpm, PKOT=893/80 mmhg, SpO2=96.0 %, Resp=21 B/min, Pain=0, Mina=10, Garcia=2 After removing the current catheter a CATHIE INFINITI CATHETER FR 5 was advanced over a WIRE, ANGLE D GLIDE .035 8:34:32 260CM 260CM. 8:37:59 HR=73 bpm, GMUL=834/71 mmhg, SpO2=96.0 %, Resp=16 B/min, Pain=0, Mina=10, Garcia=2 Recorded Pressure: Ao, HR=78, Condition=Condition 1 8:41:14 (Aorta) Ao 133/53/84 8:43:00 HR=81 bpm, FPAP=539/75 mmhg, SpO2=96.0 %, Resp=12 B/min, Pain=0, Mina=10, Garcia=2 8:44:37 VASCADE, FR5 CLOSURE SYSTEM FR 5 placement in the Fem Art (right) 8:44:43 Catheter was removed w/o difficulty 8:45:52 Case End 8:47:59 HR=76 bpm, UDPW=269/73 mmhg, SpO2=95.0 %, Resp=16 B/min, Pain=0, Mina=10, Garcia=2 8:50:35 Sterile dressing applied to site 8:50:36 No case complications noted. 8:50:37 Cine recording checked. Assessment: Final Case, HR=76 BPM, Rhythm=Sinus, RFGW=020/73 mmhg, Chest Pain=0, Edema=None, Color=Normal, Skin = Warm, Dry Right Pulses: Jose Ped=d, Post Tib=d, Femoral=1 8:51:24 Left Pulses: Jose Ped=d, Post Tib=d, Femoral=1 Neurological: State=Alert, Ox3, IVAN Respiration: Resp=17 B/min, SpO2=97 %, O2=0 lpm 8:54:31 DUWB=792/85 mmhg, Pain=0, Mina=10, Garcia=2 8:54:51 Vitals capture stopped. 8:58:[address] [facility] End Study - Contrast Media Used In Study Contrast Total Opened (mL) Total Used (mL) Total Wasted (mL) Omnipaque 300 110 190 End Study - Maximum Contrast Load Max Contrast Load (mL) 568.4 End Study - Radiation Exposure Fluoro Time (minutes) 8.1 End Study - Patient Disposition Complications Transferred To Interventional Outcome No Outpatient Bed No attempt made
[2017-05-08] MEDS ORDERED: SODIUM CHLOR 0.9% 1000 ML INJ 500 ML IV ONE (09:00)
--- NOTE | 2017-05-08 10:47 | MA ---
cc: MELITA GENAO M.D. DATE 05/08/2017 PREOPERATIVE DIAGNOSIS Severe claudication, ultrasound CTA scan consistent with severe peripheral vascular disease. PROCEDURE Angiogram with distal runoff. DESCRIPTION OF THE PROCEDURE After obtaining informed consent, the patient was brought to the Director Audience Marketing. The right groin area was sterilized and prepped with sterile drapes. 1% Xylocaine used to locally anesthetize the area. A 5-Syrian sheath advanced into the right femoral artery. A 5-Syrian pigtail performed aortogram and distal runoff and positioned toward the upper abdominal aorta area, then low abdominal aorta area. This was followed by hand injection through the sheath on the right side to get all the images all the way to the ankle and the left side we managed to get with the MURRAY catheter all the way up and around and positioned in the left external iliac area and injections to follow through all the way to the ankle. At the end of the procedure, the catheter taken out, sheath taken out and Vas cath closure of the puncture wound done successfully. He was sent back to his room in stable condition. No complications. RESULTS Abdominal aorta has mild disease. The renal does not seem to have any significant disease. The right common iliac and common femoral has mild diffuse disease. The profunda femoris has no significant disease. The right superficial femoral artery proximally has a lesion about 60-70%. The mid segment has two different lesions, one of them about 90, the other one 99%. Popliteal artery on the right side has mild diffuse disease. We start at the knee, there is a runoff and the posterior tibial completely occluded in the mid segment. The anterior tibial, peroneal traced all the way to the ankle with no significant disease. On the left side, the left common iliac is mildly diseased. The left external iliac has about 70% stenosis. The left common femoral has mild disease. The left superficial femoral has mild disease with about 50% in the mid segment. The profunda femoris has no significant disease. Below the knee, posterior tibial completely occluded in the mid segment. Anterior tibial and peroneal were traced all the way to the ankle with no significant disease. The patient stent back to his room in stable condition. CONTEMPLATION For right superficial femoral artery angioplasty and stent will be discussed with the patient. MD ESHA Taylor/SHELLI /8:49 AM /10:28 AM
== END 2017-05-08 14:38 | disposition home or self-care (01) ==
LOC: HDIC 05:52 → HCAT 05:52
PROVIDERS: ATTEND Internal Medicine Cardiovascular Disease
DX: I73.9 Peripheral vascular disease, unspecified (principal); I10 Essential (primary) hypertension; J44.9 Chronic obstructive pulmonary disease, unspecified; E78.5 Hyperlipidemia, unspecified; E11.9 Type 2 diabetes mellitus without complications; Z79.01 Long term (current) use of anticoagulants
CPT/HCPCS: 36246; 75625; 75716; 80048; 85025; 85610; C1760; C1769; C1893; G0269; J1644; J2250; J7030; Q9967

== ENCOUNTER 2017-05-17 12:30 | Day surgery (SDC) | payer OTHER ==
[~2017-05-17] VITALS: Ht 185.4 cm; Wt 112.6 kg
[~2017-05-17 12:30] MED LIST changes: +LIPI10TA PO; -METF500T PO; +NEXI20CA PO; +OMEGCAP PO; +PLAV75TA29 PO
[2017-05-17] MEDS ORDERED: IOHEXOL 350 MG/ML 50 ML BTL (for Cath Lab) OTHER ONE (12:31)
[2017-05-17 13:30] VITALS: BP 158/88; PULSE 81; RESP 18; TEMP 97.8; O2SAT 98
[2017-05-17 13:49] LABS: AUTOMATED NEUTROPHIL # 4.7 TH/MM3 (1.8-7.7); BASOPHIL % 0.6 % (0.0-2.0); EOSINOPHIL # 0.4 TH/MM3 (0-0.4); EOSINOPHIL % 4.7 % (0.0-4.0); HEMO FLAGS DIFF FINAL; LYMPH % 30.1 % (9.0-44.0); LYMPHOCYTE # 2.5 TH/MM3 (1.0-4.8); MEAN CELL VOLUME 89.9 FL (80.0-100.0); MEAN CORPUSCULAR HEMOGLOBIN 30.2 PG (27.0-34.0); MEAN CORPUSCULAR HGB CONC 33.6 % (32.0-36.0); MONO % 9.1 % (0.0-8.0); NEUT % 55.5 % (16.0-70.0); PLATELET COUNT 206 TH/MM3 (150-450); RED BLOOD COUNT 5.12 MIL/MM3 (4.50-5.90); RED CELL DISTRIBUTION WIDTH 14.1 % (11.6-17.2); WHITE BLOOD COUNT 8.4 TH/MM3 (4.0-11.0)
[2017-05-17 14:09] LABS: BICARBONATE 23.6 MEQ/L (21.0-32.0); POTASSIUM 4.4 MEQ/L (3.5-5.1)
[2017-05-17 14:14] LABS: PROTHROMBIN TIME - PATIENT 10.7 SEC (9.8-11.6)
[2017-05-17] MEDS ORDERED: HEPARIN-NS/PF INJ 1,000 ML ONE (15:48)
[2017-05-17] MEDS ORDERED: MIDAZOLAM HCL 2 MG/2 ML VIAL ONE (15:49)
[2017-05-17] MEDS ORDERED: HEPARIN SODIUM - IV 10,000 UNITS/10 ML VIAL ONE (15:50)
[2017-05-17] MEDS ORDERED: NITROGLYCERIN INJ 5 ML ONE (15:50)
[2017-05-17] MEDS ORDERED: LIDOCAINE HCL 2% 50 ML VIAL ONE (16:11)
--- NOTE | 2017-05-17 16:47 | CATHPROC ---
[employer] HIS Report Study Information Study Number Admission Scheduled Start Study Start [id number] May 17 2017 12:30PM 05/17/2017 May 17 2017 3:38PM [place] Service Cath Endovascular Study Admit Source Facility Department Other [facility] - Putty Patcher Physician and Clinical Staff Initial Cesia Mauricio Sitecore Developer Lidia Dobbins,RN Recorder Bhargavi Jay,RT(R) (BS) Scrub Lane ReinosoRT(R) Procedures Performed Procedure Location (Site) Vessel Name Wire insertion Fem Art (left) Femoral Art Equipment Time Maritime Guard Description Size Mfg Part Number Used/Scraped TRANSDUCER, TRUWAVE [id number] 15:46 ODONNELL NORMAN * Used W/STOCKCOCK *[id number] 16:20 CORDIS/ NOLAN RIM SUPER TORQUE CATHETER FR 5 Used *[id number] 15:46 [employer] INDUSTRIES PACK, CCL CUSTOM * Used *[id number] 15:46 [employer] PACER PEN, SKIN DUAL W/ RULER * Used *[id number] 15:46 [employer]ly WIRE, 3MMJ .035 180CM 180CM Used *[id number] 15:46 NAMIC MANIFOLD, 4 PORT * Used *[id number] 16:21 NYCOMED OMNIPAQUE, 300 MG, 150ML 150ML [id number] Used [id number] 15:46 BUSTOS MEDICAL BLANKET,WARM AIR CCL * Used *[id number] 16:13 TERUMO MEDICAL SHEATH, FR5 TERUMO (10CM) FR 5 Used *[id number] CATHETER, FR4 STR GLIDE 16:27 TERUMO MEDICAL/NOLAN FR 4 [id number] *[id number] Used 120CM SHEATH, FR6 PINNACLE [id number] 15:42 TERUMO MEDICAL/NOLAN FR 6 Used DESTINATION 45CM *[id number] WIRE, ANGLE GLIDE STIFF .035 [id number] 15:51 TERUMO MEDICAL/NOLAN 260CM Used 260CM *[id number] History: Current Medications Medication Dosage/Unit Route Frequency Last Date/Time Taken Glucophage Insulin LISINOPRIL CARVEDILOL ASA PLAVIX Beta Srinivasa Statins (any) History: Allergies Allergy Reaction No Known Allergies History: Risk Factors Family History of Hypertension Dyslipidemia Previous [place] Previous Heart Failure Premature CAD Yes Yes Yes No No Prior Valve Prior PCI Prior PCIDate Prior CABG Surgery No Yes 04/25/2017 No Cerebrovascular Peripheral Artery Chronic Lung On Dialysis Diabetes Diabetes Therapy Disease Disease Disease No No Yes Yes Yes Insulin History: Stress Tests Stress or Imaging Studies Performed No History: Other Disease Selection Items COPD HTN History: Other Current Smoker Method Quit Packs a Day Years Used Pack Years No Cigarettes 25 Years Ago 1 22 22 Labs Hgb (g/dl) Hct (%) WBC (l/cumm) Platelets (thousands) 11.60-17.00 35.00-51.00 4.00-11.00 150.00-450.00 15.5 46 8.4 206 Glucose (mg/dl) BUN (mg/dl) Creatinine (mg/dl) BUN:Creatinine (1:x) 74.00-106.00 7.00-18.00 0.50-1.30 10.00-20.00 143 22 0.9 24.4 Na (meq/l) K (meq/l) 136.00-145.00 3.50-5.10 137 4.4 INR (PTT:PT) 0.90-1.10 1 CPK-MB (ng/ML) 0.50-3.60 Not Drawn Medication Medication Total Dose (Bolus/Oral) Medication Total Dosage/Unit 1% XYLOCAINE 20 mL VERSED 2 mg Medications (Bolus/Oral) Medication Time Given Dosage/Unit Administered By Reason VERSED 05/17/2017 4:06:15 PM 2 mg Lidia Dobbins 2 mg VERSED given in lab by Lidia Dobbins RN in Left Forearm via Peripheral IV. 1% XYLOCAINE 05/17/2017 4:09:02 PM 20 mL Cesia Copeland 20 mL 1% XYLOCAINE given in lab by Cesia Copeland in Left Groin via Subcutaneous. Medication (Drip) Medication Time Given Dosage/Unit Concentration/Unit Diluent (ml) Solution IV Solutions 05/17/2017 3:39:16 PM 0 mL (IV) 500 NaCl .9 IV Solutions given in lab by Lidia Dobbins RN in Left Forearm via Peripheral IV. Pump/Drip Flow = 100 ml/hr using NaCl .9. Initial Case Assessment Cardiovascular HR Rhythm NIBP Chest Pain 75 reg 155/82 0 Edema Present Skin color Skin None Normal Warm Dry Circulatory - Right Pulses Dorsalis Pedis Femoral d d Scale (0,1,2,3,4,d) Circulatory - Left Pulses Dorsalis Pedis Femoral d d Scale (0,1,2,3,4,d) Circulatory - Lower Extremities Color Lower Right Color Lower Left Normal Normal Neurological State Oriented to time-place- Alert Moves all extremities person Respiration - General Respiration Rate SpO2 (%) (B/min) 15 99 Chronological Log Time Study Chronological Log 15:34:46 Patient arrived via Bed. 15:34:52 Patient Name, D.O.B, / Armband Verified By R.N. 15:34:54 Consent signed by the physician and the patient and verified by the Putty Patcher staff. 15:38:59 Pre-op and post- op instructions given; patient acknowledges understanding of instructions. 15:39:00 Verbal Stimulation=2 Physical Stimulation=2 Airway=2 Respiration=2 TOTAL=8. (0=absent, 1=li mited, 2=present) 15:39:02 Anesthesia at bedside. Assumes care of patient. 15:39:04 Presedation assessment performed by Putty Patcher RN. 15:39:07 Patient has been NPO for More than 6Hrs. 15:39:08 Skin Breakdown none per pt 15:39:09 Patient Warmer Placed on the Table. 15:39:11 Janett Prominences Protected 15:39:15 A # 20 IV was noted in the Forearm (left). Grade = 0 IV Solutions given in lab by iLdia Dobbins, RN in Left Forearm via Peripheral IV. Pump/Drip F low = 100 ml/hr using 15:39:16 NaCl .9. 15:39:18 History and physical on the chart or being dictated. Assessment: Initial Case, HR=75 BPM, Rhythm=reg, IFDZ=079/82 mmhg, Chest Pain=0, Edema=None, Co mireya=Normal, Skin = Warm, Dry Right Pulses: Jose Ped=d, Femoral=d Left Pulses: Jose Ped=d, Femoral=d 15:39:19 Lower Right Extremities: Color=Normal Lower Left Extremities: Color=Normal Neurological: State=Alert, Ox3, IVAN Respiration: Resp=15 B/min, SpO2=99 % Vitals capture started with the following parameters, Patient=Adult, Interval=5 min, Initial Pr oqokaf=088 mmHg, 15:40:35 Deflation Rate=5 mmHg, Cuff placed on Right Arm 15:41:47 JJPU=282/82 mmhg, SpO2=99.0 %, Resp=7 B/min, Pain=0, Mina=10, Garcia=2 15:46:17 HR=75 bpm, IPSZ=114/76 mmhg, SpO2=98.0 %, Resp=19 B/min, Pain=0, Mina=10, Garcia=2 15:51:55 HR=79 bpm, RAEA=315/86 mmhg, SpO2=98.0 %, Resp=15 B/min, Pain=0, Mina=10, Garcia=2 15:53:12 Bilateral groins prepped with 2% chlorhexidine, and draped after a 3 minute waiting time. 15:56:22 HR=78 bpm, PGPZ=354/78 mmhg, SpO2=99.0 %, Resp=12 B/min, Pain=0, Mina=10, Garcia=2 15:56:53 MD paged 15:58:45 Pressure channel 1 zeroed. 16:01:21 HR=77 bpm, NKSJ=707/84 mmhg, SpO2=97.0 %, Resp=19 B/min, Pain=0, Mina=10, Garcia=2 16:05:15 MD arrived. 16:06:15 2 mg VERSED given in lab by Lidia Dobbins RN in Left Forearm via Peripheral IV. 16:06:20 HR=76 bpm, SJAS=102/78 mmhg, SpO2=98.0 %, Resp=14 B/min, Pain=0, Mina=10, Garcia=2 Time Out. Correct patient, correct procedure, correct physician, power injector loaded, with co ntrast with surgical team 16:07:46 present. Time Out Concurred by MD and individual staff in procedure. 16:07:57 Case Start 16:08:06 Reference ECG taken 16:09:02 20 mL 1% XYLOCAINE given in lab by Cesia Copeland in Left Groin via Subcutaneous. 16:11:17 HR=77 bpm, FSFA=537/79 mmhg, SpO2=98.0 %, Resp=13 B/min, Pain=0, Mina=10, Garcia=2 16:12:49 Access site was Left Femoral Artery. 16:12:59 A SHEATH, FR5 TERUMO (10CM) FR 5 was advanced into the Fem Art (left) using the Mohini s technique. 16:14:18 A WIRE, ANGLE GLIDE STIFF .035 260CM 260CM was inserted via Fem Art (left). 16:16:20 HR=78 bpm, XVZD=872/83 mmhg, SpO2=97.0 %, Resp=19 B/min, Pain=0, Mina=10, Garcia=2 A RIM SUPER TORQUE CATHETER FR 5 was advanced over a wire. OMNIPAQUE, 300 MG, 150ML 150ML was u sed for 16:20:01 injections. 16:21:21 HR=75 bpm, FRRM=241/76 mmhg, SpO2=97.0 %, Resp=20 B/min, Pain=0, Mina=10, Garcia=2 16:26:18 HR=75 bpm, ITFW=230/71 mmhg, SpO2=96.0 %, Resp=19 B/min, Pain=0, Mina=10, Garcia=2 16:31:04 Through a CATHETER, FR4 STR GLIDE 120CM FR 4, The Fem Art (left) was injected with 8 cc's o f contrast. 16:31:19 HR=76 bpm, BMNC=052/84 mmhg, SpO2=97.0 %, Resp=23 B/min, Pain=0, Mina=10, Garcia=2 16:32:25 Catheter was removed 16:32:38 Wire removed 16:33:22 Sheath removed; pressure applied to access site. 16:34:07 Case End 16:36:40 Catheter(s) removed without difficulty 16:36:48 No case complications noted. 16:36:49 Cine recording checked. 16:36:51 Bedside Report will be given. 16:36:56 Contrast Scanned 16:36:57 HR=75 bpm, LXED=542/77 mmhg, SpO2=98.0 %, Resp=12 B/min, Pain=0, Mina=10, Garcia=2 16:39:14 DOCU called. Spoke to Aidee. 16:41:19 HR=74 bpm, STWV=390/81 mmhg, SpO2=97.0 %, Resp=21 B/min, Pain=0, Mina=10, Garcia=2 16:44:54 Sterile dressing applied to site 16:45:04 Vitals capture stopped. 16:49:51 Patient moved to stretcher End Study - Contrast Media Used In Study Contrast Total Opened (mL) Total Used (mL) Total Wasted (mL) Omnipaque 15 15 0 End Study - Maximum Contrast Load Max Contrast Load (mL) 625.5 End Study - Radiation Exposure Fluoro Time (minutes) 7.1 End Study - Sheaths Sheaths Pulled By Sheath Hold Time (min) Lane Reinoso End Study - Patient Disposition Complications Transferred To Interventional Outcome No Putty Patcher Holding No attempt made
[2017-05-17] MEDS ORDERED: SODIUM CHLOR 0.9% 1000 ML INJ 500 ML IV ONE (17:00)
[2017-05-17] MEDS ORDERED: ENOXAPARIN SODIUM 40 MG/0.4 ML SYRINGE SQ ONE (17:45)
[2017-05-17] MEDS ORDERED: ENOXAPARIN SODIUM 100 MG/ML SYRINGE ONE (18:10)
[2017-05-17 19:00] VITALS: BP 150/73; PULSE 76; PULSE 81; RESP 12; TEMP 97.7; O2SAT 97
[2017-05-17 20:00] VITALS: PULSE 75
[2017-05-17 21:00] VITALS: PULSE 80
[2017-05-17 22:00] VITALS: PULSE 82
[2017-05-17 23:00] VITALS: BP 145/82; PULSE 82; PULSE 90; RESP 12; TEMP 97.9; O2SAT 96
[2017-05-17] MEDS ORDERED: ALPRAZolam 0.5 MG TAB PO SCH (23:45)
[2017-05-17] MEDS ORDERED: amLODIPine BESYLATE 5 MG TAB PO SCH (23:45)
[2017-05-17] MEDS ORDERED: PILL SPLITTER OTHER PRN (23:45)
[2017-05-18] VITALS (9 sets, daily range): BP systolic 133–137; BP diastolic 56–73; PULSE 72–86; RESP 17–20; TEMP 97.4–97.8; O2SAT 96–98
--- NOTE | 2017-05-18 07:17 | MA ---
cc: MELITA GENAO M.D. DATE 05/17/2017 PREOPERATIVE DIAGNOSIS Significant stenosis in the right superficial femoral artery. PROCEDURE After obtaining informed consent, the patient was brought to the Auditing Coder. The left groin area was sterilized and distal drapes applied. 1% Xylocaine used to locally anesthetize the area. A 5-Indonesian sheath accessed the left femoral artery. We could not pass any wires and it is noticed there might be a small area of dissection. There was a pressure gradient across that so the procedure was stopped at this point. The patient had no complaints. The leg is warm. Manual pressure applied after taking the sheath out. He will be monitored closely and followed up accordingly. MD ESHA Taylor/SHELLI /4:36 PM /7:03 AM
--- NOTE | 2017-05-18 09:31 | PD.CARD.PN ---
Subjective Subjective Remarks feeling well no complaints Objective Medications Current Medications Medications (Trade) Dose Ordered Sig/Florentin Route Start Time Stop Time Status Last Admin (Pill Splitter) 1 ea UNSCH PRN OTHER 05/17/17 23:45 Vital Signs / I&O Vital Signs Date Time Temp Pulse Resp B/P (MAP) Pulse Ox O2 Delivery O2 Flow Rate FiO2 05/18/17 08:51 97.8 86 17 137/73 (94) 96 05/18/17 06:00 86 05/18/17 05:00 72 05/18/17 04:00 81 05/18/17 03:55 97.4 80 20 133/56 (81) 98 05/18/17 03:00 74 05/18/17 02:00 76 05/18/17 01:00 78 05/18/17 00:00 81 05/17/17 23:00 97.9 90 12 145/82 (103) 96 05/17/17 23:00 82 05/17/17 22:00 82 05/17/17 21:00 80 05/17/17 20:00 75 05/17/17 19:00 97.7 81 12 150/73 (98) 97 05/17/17 19:00 76 05/17/17 13:30 97.8 81 18 158/88 (111) 98 I/O 05/17/17 05/17/17 05/17/17 05/18/17 05/18/17 05/18/17 07:00 15:00 23:00 07:00 15:00 23:00 Intake Total 360 ml Balance 360 ml Intake Oral 360 ml # Voids 1 Physical Exam leg is warm and left dp detected by doppler as before procedure vitals stable heart s1s2 lung clear abdomen soft non tender bs intact Laboratory Laboratory Tests Test 05/17/17 13:21 White Blood Count 8.4 TH/MM3 Red Blood Count 5.12 MIL/MM3 Hemoglobin 15.5 GM/DL Hematocrit 46.0 % Mean Corpuscular Volume 89.9 FL Mean Corpuscular Hemoglobin 30.2 PG Mean Corpuscular Hemoglobin Concent 33.6 % Red Cell Distribution Width 14.1 % Platelet Count 206 TH/MM3 Mean Platelet Volume 7.9 FL Neutrophils (%) (Auto) 55.5 % Lymphocytes (%) (Auto) 30.1 % Monocytes (%) (Auto) 9.1 % Eosinophils (%) (Auto) 4.7 % Basophils (%) (Auto) 0.6 % Neutrophils # (Auto) 4.7 TH/MM3 Lymphocytes # (Auto) 2.5 TH/MM3 Monocytes # (Auto) 0.8 TH/MM3 Eosinophils # (Auto) 0.4 TH/MM3 Basophils # (Auto) 0.0 TH/MM3 CBC Comment DIFF FINAL Differential Comment Prothrombin Time 10.7 SEC Prothromb Time International Ratio 1.0 RATIO Activated Partial Thromboplast Time 26.0 SEC Blood Urea Nitrogen 22 MG/DL Creatinine 0.91 MG/DL Random Glucose 142 MG/DL Calcium Level 9.7 MG/DL Sodium Level 137 MEQ/L Potassium Level 4.4 MEQ/L Chloride Level 106 MEQ/L Carbon Dioxide Level 23.6 MEQ/L Anion Gap 7 MEQ/L Estimat Glomerular Filtration Rate 83 ML/MIN Assessment and Plan Assessment and Plan ambulating well ok home for follow up as outpatient full instructions fro diet meds activity and follow up given Cesia Copeland MD May 18, 2017 09:31
[2017-05-23] MEDS ORDERED: METF500T PO (09:46)
[2017-05-23] MEDS ORDERED: ALPR0.5T3 PO (09:46)
== END 2017-05-18 11:04 | disposition home or self-care (01) ==
LOC: HCAT 12:30 → HDIC 12:31 → HCIN 18:50 → HCAT 05-18 11:04
PROVIDERS: ATTEND Internal Medicine Cardiovascular Disease
DX: I70.201 Unspecified atherosclerosis of native arteries of extremities, right leg (principal); I10 Essential (primary) hypertension; J44.9 Chronic obstructive pulmonary disease, unspecified; Z79.01 Long term (current) use of anticoagulants
CPT/HCPCS: 36140; 75710; 80048; 85025; 85610; 85730; 99152; 99153; C1769; C1887; C1893; J1644; J1650; J2250; J3010; J7030; Q9967

== ENCOUNTER 2017-08-06 09:31 | Day surgery (SDC) | payer OTHER ==
[~2017-08-06] VITALS: Ht 186.7 cm; Wt 115.9 kg
[~2017-08-06 09:31] MED LIST changes: +ALPR0.5T3 PO; -ASPI81TA11 PO; +ASPI81TA23 PO
[2017-08-06] MEDS ORDERED: IOHEXOL 350 MG/ML 50 ML BTL (for Cath Lab) OTHER ONE (09:32)
[2017-08-06] MEDS ORDERED: NS 1000P @30 MLS/HR (KVO) IV SCH (10:00)
[2017-08-06 10:04] VITALS: BP 187/90; PULSE 89; RESP 18; TEMP 97.6; O2SAT 95
[2017-08-06] MEDS ORDERED: APIX2.5T PO (10:10)
[2017-08-06] MEDS ORDERED: HUMIBIDDM PO (10:10)
[2017-08-06] MEDS ORDERED: antibiotic PO (10:10)
[2017-08-06 10:27] LABS: AUTOMATED NEUTROPHIL # 5.3 TH/MM3 (1.8-7.7); BASOPHIL # 0.1 TH/MM3 (0-0.2); BASOPHIL % 0.6 % (0.0-2.0); EOSINOPHIL # 0.3 TH/MM3 (0-0.4); HEMATOCRIT 46.5 % (39.0-51.0); HEMOGLOBIN 15.9 GM/DL (13.0-17.0); LYMPH % 28.1 % (9.0-44.0); LYMPHOCYTE # 2.4 TH/MM3 (1.0-4.8); MEAN CELL VOLUME 89.5 FL (80.0-100.0); MEAN CORPUSCULAR HEMOGLOBIN 30.5 PG (27.0-34.0); MEAN CORPUSCULAR HGB CONC 34.1 % (32.0-36.0); MEAN PLATELET VOLUME 8.3 FL (7.0-11.0); MONO % 7.7 % (0.0-8.0); MONOCYTE # 0.7 TH/MM3 (0-0.9); NEUT % 60.6 % (16.0-70.0); PLATELET COUNT 208 TH/MM3 (150-450); RED CELL DISTRIBUTION WIDTH 14.1 % (11.6-17.2); WHITE BLOOD COUNT 8.7 TH/MM3 (4.0-11.0)
[2017-08-06 10:49] LABS: BICARBONATE 22.8 MEQ/L (21.0-32.0); CALCIUM 9.4 MG/DL (8.5-10.1)
[2017-08-06] MEDS ORDERED: HEPARIN-NS/PF INJ 1,000 ML ONE (11:23)
[2017-08-06] MEDS ORDERED: MIDAZOLAM HCL 2 MG/2 ML VIAL ONE (12:05)
[2017-08-06] MEDS ORDERED: diphenhydrAMINE HCL 50 MG/ML VIAL ONE (12:18)
[2017-08-06] MEDS ORDERED: hydrALAZINE HCL 20 MG/ML VIAL ONE (12:25)
[2017-08-06] MEDS ORDERED: LIDOCAINE HCL 2% 50 ML VIAL ONE (12:32)
[2017-08-06] MEDS ORDERED: HEPARIN SODIUM - IV 10,000 UNITS/10 ML VIAL ONE (12:32)
[2017-08-06] MEDS ORDERED: VERAPAMIL HCL 5 MG/2 ML VIAL ONE (12:32)
[2017-08-06] MEDS ORDERED: SODIUM CHLOR 0.9% 1000 ML INJ 400 ML IV ONE (13:00)
--- NOTE | 2017-08-06 13:25 | MA ---
cc: MELITA GENAO M.D. DATE 08/06/2017 INDICATION This is a 66-year-old with a history of claudication, status post angioplasty of the right superficial femoral. PROCEDURE Right iliac, femoral, popliteal, tibial angiographic evaluation. DETAILS OF PROCEDURE After obtaining informed consent, the patient in a fasting state was brought to the slab inspector. The left groin area was sterilized and draped with sterile drapes. Access was done but could not really pass the wire so the was stopped. Access via the right radial artery was performed with a 5 Bermudian sheath. Multiple catheters were used and positioned in the right common iliac area. Angiographic evaluation was performed. At the end of the procedure a TR band was applied after taking the sheath out. The patient was sent back to his room in stable condition. There were no complications. FINDINGS RIGHT LOWER EXTREMITY ANGIOGRAM The right common femoral artery had no significant disease. The profunda had no significant disease. The right superficial femoral had about 50% stenosis proximally. A mid to distal segment area status post angioplasty was widely patent with excellent flow. Two-vessel runoff was seen below the knee in the anterior tibial and peroneal and early posterior tibial. The posterior tibial was completely occluded. The rest of the vessel was traced almost all the way up just above the ankle. There was excellent flow. Medical management to continue. The patient was sent back to his room in stable condition. POSTOPERATIVE DIAGNOSIS Patent right superficial femoral artery with 50% stenosis proximally. MD ESHA Taylor/WILLIAMS /12:49 PM /12:55 PM
== END 2017-08-06 16:59 | disposition home or self-care (01) ==
LOC: HCAT 09:31 → HDIC 09:32 → HCAT 16:59
PROVIDERS: ATTEND Internal Medicine Cardiovascular Disease
DX: I70.201 Unspecified atherosclerosis of native arteries of extremities, right leg (principal); I25.10 Atherosclerotic heart disease of native coronary artery without angina pectoris; J44.9 Chronic obstructive pulmonary disease, unspecified; E78.5 Hyperlipidemia, unspecified; R10.30 Lower abdominal pain, unspecified; Z79.4 Long term (current) use of insulin; Z01.818 Encounter for other preprocedural examination
CPT/HCPCS: 36247; 75710; 80048; 85025; 85610; 85730; C1769; C1893; J0360; J1200; J1644; J2250; J3010; Q9967

== ENCOUNTER → 2017-10-15 | Outpatient (CLI) | payer OTHER ==
[~2017-10-15] MED LIST changes: -ALPR0.5T3 PO; +APIX2.5T PO; -ASPI81TA23 PO; +HUMIBIDDM PO; +antibiotic PO
--- NOTE | 2017-10-16 09:39 | RSPPFT ---
DATE OF PROCEDURE: 10/15/17 COMMENTS: Spirometry with FVC of 4.6 predicted 4.8, FEV1 of 2.8 predicted 3.8, FEV1/FVC ratio 61% predicted 78%. No significant changes noticed post-bronchodilator acutely. IMPRESSION: On the basis of the above, patient has an obstructive lung defect.
== END ==
LOC: HRSP 07:54
PROVIDERS: ATTEND Family Medicine
DX: J44.9 Chronic obstructive pulmonary disease, unspecified (principal)
CPT/HCPCS: 94060

== ENCOUNTER 2017-11-20 06:42 | Day surgery (SDC) | payer OTHER ==
[~2017-11-20] VITALS: Ht 185.4 cm; Wt 115.0 kg
[2017-11-20] MEDS ORDERED: IOHEXOL 350 MG/ML 50 ML BTL (for Cath Lab) OTHER ONE (06:43)
[2017-11-20] MEDS ORDERED: IOHEXOL 350 MG/ML 100 ML BTL (for Cath Lab) OTHER ONE (06:43)
[2017-11-20] MEDS ORDERED: METF1000 PO (07:08)
[2017-11-20] MEDS ORDERED: ASPI81CH6 CHEW (07:08)
[2017-11-20] MEDS ORDERED: NITR0.4D T-DERMAL (07:08)
[2017-11-20 07:15] VITALS: BP 155/82; PULSE 85; RESP 18; TEMP 98; O2SAT 97
[2017-11-20] MEDS ORDERED: NS 1000P @30 MLS/HR (KVO) IV SCH (07:15)
[2017-11-20 07:45] LABS: AUTOMATED NEUTROPHIL # 4.1 TH/MM3 (1.8-7.7); BASOPHIL % 0.4 % (0.0-2.0); EOSINOPHIL # 0.2 TH/MM3 (0-0.4); HEMATOCRIT 48.1 % (39.0-51.0); HEMOGLOBIN 15.9 GM/DL (13.0-17.0); LYMPH % 32.4 % (9.0-44.0); LYMPHOCYTE # 2.4 TH/MM3 (1.0-4.8); MEAN CELL VOLUME 89.6 FL (80.0-100.0); MEAN CORPUSCULAR HEMOGLOBIN 29.6 PG (27.0-34.0); MEAN PLATELET VOLUME 7.8 FL (7.0-11.0); MONO % 8.6 % (0.0-8.0); MONOCYTE # 0.6 TH/MM3 (0-0.9); NEUT % 55.6 % (16.0-70.0); PLATELET COUNT 192 TH/MM3 (150-450); RED BLOOD COUNT 5.37 MIL/MM3 (4.50-5.90); RED CELL DISTRIBUTION WIDTH 14.6 % (11.6-17.2); WHITE BLOOD COUNT 7.4 TH/MM3 (4.0-11.0)
[2017-11-20 08:03] LABS: BICARBONATE 25.8 MEQ/L (21.0-32.0); CALCIUM 9.4 MG/DL (8.5-10.1); CREATININE 1.06 MG/DL (0.60-1.30); PROTHROMBIN TIME - PATIENT 10.3 SEC (9.8-11.6)
[2017-11-20] MEDS ORDERED: HEPARIN-NS/PF FLUSH BAG 2,000 ML IV FLUSH ONE (08:16)
[2017-11-20] MEDS ORDERED: NITROGLYCERIN INJ 5 ML ONE (08:17)
[2017-11-20] MEDS ORDERED: HEPARIN SODIUM - IV 10,000 UNITS/10 ML VIAL ONE (08:17)
[2017-11-20] MEDS ORDERED: VERAPAMIL HCL 5 MG/2 ML VIAL ONE (08:17)
[2017-11-20] MEDS ORDERED: MIDAZOLAM HCL 2 MG/2 ML VIAL ONE (08:30)
[2017-11-20] MEDS ORDERED: LIDOCAINE HCL 1% PF 30 ML VIAL ONE (08:30)
[2017-11-20] MEDS ORDERED: CLOPIDOGREL 75 MG TAB ONE (09:10)
--- NOTE | 2017-11-20 09:29 | CATHPROC ---
[employer] HIS Report Study Information Study Number Admission Scheduled Start Study Start [id number] Nov 20 2017 6:42AM 11/20/2017 Nov 20 2017 8:01AM [place] [facility] Cardiac Catheterization Admit Source Facility Department Other [facility] - Fugitive Investigator Physician and Clinical Staff Initial Cesia Mauricio President And Cmo Santo Brandt RN President And Cmo Cullen Shore RN Recorder Iram Sosa,RT(R) Scrub Isidro Akers RCIS(BS) Procedures Performed Procedure Location (Site) Vessel Name Coronary Angiograms LCA Left Coronary Coronary Angiograms RCA Right Coronary Drug Eluting Inflatio LAD Prox Left Coronary L Heart Cath LV Gram-hand inj. LV LV Ventricle PTCA DIAG1 Mid Left Coronary PTCA LAD Dist Left Coronary PTCA LAD Prox Left Coronary Wire insertion Radial (right) Radial Art. Equipment Time Melangeur Operator Description Size Mfg Part Number Used/Scraped WIRE, WHISPER W/HYDROCOAT [id number] 08:53 [employer] 190CM Used 190CM *[id number] TRANSDUCER, TRUWAVE [id number] 08:30 Easy Pairings * Used W/STOCKCOCK *[id number] *[id number] 08:30 Corepair PACK, CCL CUSTOM * Used *[id number] 08:30 Corepair SUPPORT, ARTERIAL ADULT [id number] *[id number] Used [id number] 08:30 Beebrite PACER PEN, SKIN DUAL W/ RULER * Used *[id number] 09:02 MEDTRONIC BALLOON, 2.0 X 20MM EUPHORA 20MM Used *[id number] BALLOON, 2.5 X 12MM NC [id number] 08:55 MEDTRONIC 12MM Used EUPHORA *[id number] 08:59 MEDTRONIC STENT, 3.0 18MM ASTRID 3.0 18MM Used *[id number] 08:58 Shortlist 30 ROBBIE INDEFLATOR Used *[id number] BAND, RADIAL COMPRESSION TR [id number] 09:12 [employer] 29CM Used LARGE 29 *[id number] 08:30 Shortlist WIRE, EXCHANGE 260CM 3MMJ 260CM Used *[id number] 08:30 NAMIC MANIFOLD, 4 PORT * Used *[id number] 08:30 NAMIC TUBING, HIGH PRESSURE 20" 20" Used *[id number] 08:30 NYCOMED OMNIPAQUE, 350 MG, 150ML 150ML [id number] Used [id number] 08:30 B[employer] BLANKET,WARM AIR CCL * Used *[id number] CATHETER, FR5 OPTITORQUE [id number] 08:36 TER[employer]O [employer] FR 5 Used RADIAL TIG 4.0 *[id number] SHEATH, FR6 TRANSRADIAL [id number] 08:30 [employer] FR 6 Used SLENDER 10CM *[id number] Equipment Model, Serial, Lot Number and Expiration Data Description Model Number Serial Number Lot Number Expiration Date BALLOON, 2.0 X 20MM EUPHORA [id number] 06-13-2019 BALLOON, 2.5 X 12MM NC [id number] 05-23-2019 EUPHORA STENT, 3.0 18MM ASTRID [id number] 08-18-2019 History: Current Medications Medication Dosage/Unit Route Frequency Last Date/Time Taken Glucophage Insulin LISINOPRIL CARVEDILOL ASA PLAVIX Beta Srinivasa Statins (any) History: Allergies Allergy Reaction No Known Allergies History: Risk Factors Family History of Hypertension Dyslipidemia Previous [place] Previous Heart Failure Premature CAD Yes Yes Yes Yes Yes Prior Valve Prior PCI Prior PCIDate Prior CABG Surgery Yes Yes 04/25/2017 No Cerebrovascular Peripheral Artery Chronic Lung On Dialysis Diabetes Diabetes Therapy Disease Disease Disease No No Yes Yes Yes Insulin History: Stress Tests Stress or Imaging Studies Performed No History: Other Disease Selection Items COPD HTN History: Other Current Smoker Method Quit Packs a Day Years Used Pack Years No Cigarettes 25 Years Ago 08 13 22 Labs Hgb (g/dl) Hct (%) WBC (l/cumm) Platelets (thousands) 11.60-17.00 35.00-51.00 4.00-11.00 150.00-450.00 15.9 48.1 7.4 192 Glucose (mg/dl) BUN (mg/dl) Creatinine (mg/dl) BUN:Creatinine (1:x) 74.00-106.00 7.00-18.00 0.50-1.30 10.00-20.00 275 21 1.0 21 Na (meq/l) K (meq/l) 136.00-145.00 3.50-5.10 139 4.1 INR (PTT:PT) 0.90-1.10 1 CPK-MB (ng/ML) 0.50-3.60 Not Drawn Medication Medication Total Dose (Bolus/Oral) Medication Total Dosage/Unit 1% XYLOCAINE 5 mL HEPARIN 5000 units NITRO OINTMENT 1 inches PLAVIX 150 mg RADIAL COCKTAIL 5 mL (Bolus) VERSED 2 mg Medications (Bolus/Oral) Medication Time Given Dosage/Unit Administered By Reason NITRO OINTMENT 11/20/2017 8:17:34 AM 1 inches Patient arrived on 1 inches NITRO OINTMENT in Right shoulder via Topical. VERSED 11/20/2017 8:32:29 AM 2 mg Rikki, Santo 2 mg VERSED given in lab by Santo Brandt RN in Left Antecubital via Peripheral IV. Ordered by Cesia Copeland. 1% XYLOCAINE 11/20/2017 8:33:14 AM 5 mL Cseia Copeland 5 mL 1% XYLOCAINE given in lab by Cesia Copeland in Right Radial via Subcutaneous. Ntg 200mcg Verapamil 2.5mg Heparin RADIAL COCKTAIL 11/20/2017 8:34:52 AM 5 mL (Bolus) Cesia Copeland 2000U 5 mL (Bolus) RADIAL COCKTAIL given in lab by Cesia Copeland in Right Radial via Radial. Using [Solutio n Name]. Reason: Ntg 200mcg Verapamil 2.5mg Heparin 2000U. HEPARIN 11/20/2017 8:52:02 AM 5000 units Rikki, Santo 5000 units HEPARIN given in lab by Santo Brandt RN in Left Antecubital via Peripheral IV. Ordered by Cesia Copeland. PLAVIX 11/20/2017 9:15:20 AM 150 mg Rikki, Santo 150 mg PLAVIX given in lab by Santo Brandt RN via Oral. Ordered by Cesia Copeland. Initial Case Assessment Cardiovascular HR Rhythm Chest Pain 85 SR 0 Edema Present Skin color Skin None Normal Warm Dry Circulatory - Right Pulses Dorsalis Pedis Femoral Radial 2 2 2 Scale (0,1,2,3,4,d) Scale (0,1,2,3,4,d) Neurological State Oriented to time-place- Alert Moves all extremities person Respiration - General Respiration Rate SpO2 (%) (B/min) 16 98 Chronological Log Time Study Chronological Log 8:11:00 Patient arrived via Bed. 8:11:01 Patient Name, D.O.B, / Armband Verified By R.N. 8:11: Consent signed by the physician and the patient and verified by the Fugitive Investigator staff. 8:11:02 Pre-op and post- op instructions given; patient acknowledges understanding of instructions. 8:11:02 Verbal Stimulation=2 Physical Stimulation=2 Airway=2 Respiration=2 TOTAL=8. (0=absent, 1=li mited, 2=present) 8:11:04 Presedation assessment performed by Fugitive Investigator RN. 8:11:06 Allens test performed on the right radial and ulnar artery. 8:11:08 Patient has been NPO for More than 6Hrs. 8:11:08 Skin Breakdown- none per pt 8:11:10 Patient Warmer Placed on the Table. 8:11:11 Janett Prominences Protected 8:11:12 A # 20 IV was noted in the Antecubital (left). Grade = 0 8:11:21 History and physical on the chart or being dictated. Assessment: Initial Case, HR=85 BPM, Rhythm=SR, Chest Pain=0, Edema=None, Color=Normal, Skin = Warm, Dry Right Pulses: Jose Ped=2, Femoral=2, Radial=2 8:11:22 Neurological: State=Alert, Ox3, IVAN Respiration: Resp=16 B/min, SpO2=98 % 8:17:34 Patient arrived on 1 inches NITRO OINTMENT in Right shoulder via Topical. 8:18:31 Reference ECG taken Vitals capture started with the following parameters, Patient=Adult, Interval=5 min, Initial Pr zwramf=965 mmHg, 8:21:07 Deflation Rate=5 mmHg, Cuff placed on Left Arm 8:22:21 HR=82 bpm, OSYX=539/91 mmhg, SpO2=97.0 %, Resp=12 B/min 8:26:27 Bilateral groins and right radial prepped with 2% chlorhexidine, and draped after a 3 minut e waiting time. 8:26:47 HR=81 bpm, HTBL=938/89 mmhg, SpO2=98.0 %, Resp=10 B/min 8:27:15 MD arrived. 8:31:48 HR=94 bpm, ILMZ=291/107 mmhg, SpO2=97.0 %, Resp=15 B/min Time Out. Correct patient, correct procedure, correct physician, power injector not loaded with contrast with surgical 8:32:26 team present. Time Out Concurred by MD and individual staff in procedure. 8:32:29 2 mg VERSED given in lab by Santo Brandt RN in Left Antecubital via Peripheral IV. Ordered by Cesia Copeland. 8:32:50 Case Start 8:33:14 5 mL 1% XYLOCAINE given in lab by Cesia Copeland in Right Radial via Subcutaneous. 8:33:20 Pressure channel 1 zeroed. 8:34:26 Access site was Right Radial Artery. A SHEATH, FR6 TRANSRADIAL SLENDER 10CM FR 6 was advanced into the Radial (right) using the [place] isabel 8:34:39 technique. 5 mL (Bolus) RADIAL COCKTAIL given in lab by Cesia Copeland in Right Radial via Radial. Using [So lution Name]. Reason: 8:34:52 Ntg 200mcg Verapamil 2.5mg Heparin 2000U. A CATHETER, FR5 OPTITORQUE RADIAL TIG 4.0 FR 5 was advanced over a wire. OMNIPAQUE, 350 MG, 150M L 150ML 8:36:03 was used for injections. 8:36:45 HR=90 bpm, OHXF=488/78 mmhg, SpO2=92.0 %, Resp=19 B/min Recorded Pressure: LV, HR=85, Condition=Condition 1 8:37:34 (Left Ventricle) LV 146/3/4 8:37:43 The LV was manually injected with 8 cc's and visualized. OMNIPAQUE, 350 MG, 150ML 150ML used . Recorded Pressure: LV, Ao, HR=91, Condition=Condition 1 8:37:53 (Left Ventricle) LV 129/5/6, (Aorta) Ao 118/60/81 8:38:04 The LCA was injected and visualized at various angles. OMNIPAQUE, 350 MG, 150ML 150ML used. Recorded Pressure: Ao, HR=88, Condition=Condition 1 8:38:14 (Aorta) Ao 108/55/75 Recorded Pressure: Ao, HR=84, Condition=Condition 1 8:40:39 (Aorta) Ao 118/57/80 8:41:42 The RCA was injected and visualized at various angles. OMNIPAQUE, 350 MG, 150ML 150ML used. 8:41:46 HR=85 bpm, BZCY=457/71 mmhg, SpO2=95.0 %, Resp=11 B/min 8:45:19 Catheter was removed 8:46:43 HR=86 bpm, XCJK=080/64 mmhg, SpO2=96 %, Resp=15 B/min 8:51:45 HR=85 bpm, XRYS=180/62 mmhg, SpO2=92.0 %, Resp=14 B/min A XB 3.5 GUIDE CATHETER FR 6 was advanced over a wire. OMNIPAQUE, 350 MG, 150ML 150ML was used f or 8:51:55 injections. 8:52:02 5000 units HEPARIN given in lab by Santo Brandt RN in Left Antecubital via Peripheral IV. O rdered by Cesia Copeland. 8:53:49 A WIRE, WHISPER W/HYDROCOAT 190CM 190CM was inserted via Radial (right). A BALLOON, 2.5 X 12MM NC EUPHORA 12MM was inserted over WIRE, WHISPER W/HYDROCOAT 190CM 190CM vi a 8:56:12 the Radial (right). A BALLOON, 2.5 X 12MM NC EUPHORA 12MM over a WIRE, WHISPER W/HYDROCOAT 190CM 190CM in the LAD Pr ox 8:56:19 was inflated using a 30 ROBBIE INDEFLATOR at 12 robbie for 20 sec. 8:56:44 HR=85 bpm, QRSC=761/75 mmhg, SpO2=93.0 %, Resp=13 B/min 8:57:44 Balloon Removed. A STENT, 3.0 18MM ASTRID 3.0 18MM was advanced through a XB 3.5 GUIDE CATHETER FR 6 over a WIRE, W HISPER 8:58:50 W/HYDROCOAT 190CM 190CM. A STENT, 3.0 18MM ASTRID 3.0 18MM was deployed using a 30 ROBBIE INDEFLATOR at 14 atmospheres for 15 seconds in 8:59:24 the LAD Prox. 9:01:03 Delivery device removed 9:01:44 Activated Clotting Time Drawn 9:01:45 HR=84 bpm, RTLC=459/79 mmhg, SpO2=96.0 %, Resp=17 B/min A BALLOON, 2.0 X 20MM EUPHORA 20MM was inserted over WIRE, WHISPER W/HYDROCOAT 190CM 190CM via the 9:02:35 Radial (right). A BALLOON, 2.0 X 20MM EUPHORA 20MM over a WIRE, WHISPER W/HYDROCOAT 190CM 190CM in the LAD Dis t was 9:02:56 inflated using a 30 ROBBIE INDEFLATOR at 8 robbie for 30 sec. A BALLOON, 2.0 X 20MM EUPHORA 20MM over a WIRE, WHISPER W/HYDROCOAT 190CM 190CM in the LAD Dis t was 9:04:51 inflated using a 30 ROBBIE INDEFLATOR at 8 robbie for 45 sec. 9:06:30 Re-wiring whisper wire to diag 9:06:48 HR=76 bpm, CLAK=569/74 mmhg, SpO2=96.0 %, Resp=15 B/min 9:06:53 ACT (Normal Range 90-180) = 268 A BALLOON, 2.0 X 20MM EUPHORA 20MM over a WIRE, WHISPER W/HYDROCOAT 190CM 190CM in the DIAG1 M id 9:09:02 was inflated using a 30 ROBBIE INDEFLATOR at 8 robbie for 45 sec. 9:10:34 Balloon Removed. 9:10:44 Wire removed 9:10:54 Catheter was removed 9:11:51 HR=79 bpm, VNQZ=435/80 mmhg, SpO2=96.0 %, Resp=11 B/min 9:12:02 Case End Radial Compression Device Used. 12 mLs of air placed in BAND, RADIAL COMPRESSION TR LARGE 29 2 9CM. Affected 9:12:17 hand 98 % O2 saturation. 9:12:31 No case complications noted. 9:12:33 Cine recording checked. 9:12:34 Holding Area notified of successful intervention. 9:12:36 Bedside Report will be given. 9:12:37 Implantable Device card placed in patient's chart. 9:13:25 A Left Heart Cath was performed. 9:15:20 150 mg PLAVIX given in lab by Santo Brandt, RN via Oral. Ordered by Cesia Copeland. 9:16:48 HR=85 bpm, GXON=375/80 mmhg, SpO2=96.0 %, Resp=12 B/min 9:21:43 Patient moved to stretcher End Study - Contrast Media Used In Study Contrast Total Opened (mL) Total Used (mL) Total Wasted (mL) Omnipaque 130 130 0 End Study - Maximum Contrast Load Max Contrast Load (mL) 568.2 End Study - Radiation Exposure Fluoro Time (minutes) 8.9 End Study - Patient Disposition Complications Transferred To Interventional Outcome No Telemetry Bed successful
[2017-11-20] MEDS ORDERED: SODIUM CHLOR 0.9% 1000 ML INJ 500 ML IV ONE (09:30)
--- NOTE | 2017-11-20 09:48 | MA ---
cc: Cesia Copeland MD DATE: 11/20/2017 INDICATION: A 67-year-old with unstable angina. PROCEDURES PERFORMED: Left heart catheterization, angiogram, left ventriculogram, angioplasty and stent placement of the LAD, angioplasty of the diagonal artery. DESCRIPTION OF THE PROCEDURE: After obtaining informed consent with the patient in a fasting state, was brought the wheelabrator operator. The right radial area was sterilized, draped with sterile drapes. 1% Xylocaine was used to anesthetize the area. A 6-Maldivian sheath was used to access the right radial artery. [place] catheter to intubate left main, intubate the right coronary artery and performed left ventriculogram and pressure measurements. CORONARY ANGIOGRAM: Left main coronary artery is medium size vessel, bifurcates into LAD, left circumflex coronary artery. Left main has mild diffuse disease. Left anterior descending coronary artery has a stent with in-stent restenosis about 85%, distally about 90% around the apex. The diagonal artery has 90% midsegment. Left circumflex artery has mild diffuse disease. Right coronary artery, medium size vessel with stent distally was patent. Posterior descending coronary artery is completely occluded with what appeared to be small collaterals from the left system, which was documented before also, about a year ago. Left ventriculogram ejection fraction estimated to be 55%. No pressure gradient across the aortic valve. Left ventricular end diastolic pressure 14. Aortic pressure 140/70. Angioplasty and stent placement of LAD, angioplasty of the diagonal artery. Left main successfully intubated using XB 3.5, 6-Maldivian guide catheter. Whisper wire was used to cross the lesion, positioned distally in the LAD. Balloon angioplasty of in-stent restenosis, followed by placement of Aureliano stent, 3.0 x 18 up to 14 atmospheres. Distally 2.0 balloon was inflating the distal segment with minimal residual stenosis. The same balloon and same wire was used in the diagonal artery with 2.0 balloon in the mid segment inflated and minimal residual stenosis observed after the procedure. Wires, balloons and catheter were taken out, sheath was taken out. TR band was applied. 150 mg of Plavix given. The patient was already on Plavix before. Sent back to his room in stable condition. No complications. POSTOPERATIVE DIAGNOSIS: Successful angioplasty and stent placement of the LAD and a diagonal artery angioplasty. Mild diffuse disease in the circumflex. Patent stent distal right coronary artery, and occluded descending coronary artery with collaterals. Preserved systolic performance of the left ventricle. Cesia Copeland MD ANNIE/TL , 09:15 AM , 09:46 AM
--- NOTE | 2017-11-20 15:20 | EKG ---
Date Performed: 11/20/2017 Time Performed: 07:32:52 PTAGE: 67 years EKG: Sinus rhythm . Possible left ventricular hypertrophy Nonspecific ST and T wave abnormalities Abnormal ECG Compared to prior electrocardiogram, Nonspecific T wave changes are more marked . PREVIOUS TRACING : 04/25/2017 07.37 DOCTOR: Tay Cuevas Interpretating Date/Time 11/20/2017 15:18:58
== END 2017-11-20 17:13 | disposition home or self-care (01) ==
LOC: HCAT 06:42 → HDIC 06:43 → HCAT 17:13
PROVIDERS: ATTEND Internal Medicine Cardiovascular Disease
DX: I25.118 Atherosclerotic heart disease of native coronary artery with other forms of angina pectoris (principal); E10.9 Type 1 diabetes mellitus without complications; I10 Essential (primary) hypertension; I73.9 Peripheral vascular disease, unspecified; E66.9 Obesity, unspecified; Z68.32 Body mass index [BMI] 32.0-32.9, adult; R79.1 Abnormal coagulation profile
CPT/HCPCS: 80048; 85002; 85025; 85610; 85730; 92928; 93005; 93458; 99152; 99153; C1725; C1769; C1874; C1887; C1893; J1644; J2250; Q9967